=== PATIENT | female | born 1960 | race Caucasian/White ===

== ENCOUNTER → 2017-11-12 | Outpatient (CLI) | payer BC | LOC: GMAB 10:13 | PROVIDERS: ATTEND Family Medicine | DX: E05.90 Thyrotoxicosis, unspecified without thyrotoxic crisis or storm (principal) ==

== ENCOUNTER → 2018-01-14 | Outpatient (CLI) | payer BC ==
--- NOTE | 2018-01-14 16:22 | RAD ---
EXAM DESCRIPTION: Barium Swallow: Rad-Fluoroscopy. CLINICAL HISTORY: DYSPHAGIA COMPARISON: None TECHNIQUE: Preliminary AP reservations specialist radiograph. The patient swallowed barium pill with water. The patient swallowed gas-producing granules, water, and medium density barium under fluoroscopic visualization. The images were obtained with the patient standing and horizontal. Patient drank medium density barium through a straw in the semi-prone position. 130 fluoroscopic cine loop images. 11 static fluoroscopic images. Total fluoroscopy time was 3.4 minutes.. DAP: 26 Gy-cm2.. FINDINGS: The barium pill passed readily into the distal esophagus after drinking water but remained in the distal esophagus throughout most of the exam even with gas dilation of the esophagus and barium contrast passing through the esophagus into the stomach. No significant abnormalities in the oral pharyngeal phase of swallowing with no laryngeal penetration or aspiration significant premature spillage or significant movement of contrast into the esophagus. Surgical clips from prior thyroid surgery. Normal primary peristaltic wave was seen in the proximal two thirds of the stomach but the distal third showed tertiary and secondary contractions. After patient swallowed contrast in the prone position, contrast showed no significant movement distally in the prone or supine position. Small sliding hiatal hernia is noted with Schatzki ring. Contrast delayed passage through the gastroesophageal junction just above the hiatal hernia. The barium pill was lodged here until later in the examination No obvious mucosal lesions in the esophagus. No mass effect. Gastroesophageal reflux could not be elicited with maneuvers while patient prone or supine. Stomach was well distended with gas and contrast material. No gastroduodenal obstruction. IMPRESSION: 1. Possible smooth stricture in the distal esophagus at the gastroesophageal junction with small sliding hiatal hernia. No irregular mucosal lesion or mass effect. Distal esophagus shows decreased peristalsis with secondary and tertiary contractions. Decreased distal movement of contrast from the upper and mid esophagus when patient prone or supine. No significant gastroesophageal reflux could be elicited. Consider endoscopic evaluation of the gastroesophageal junction. 2. No gastroduodenal obstruction or slow transit.. Electronically signed by: Abdirizak Ahn MD 01/14/2018 4:21 PM CDT
== END ==
LOC: RAD 08:29
PROVIDERS: ATTEND Nurse Practitioner Family
DX: R13.10 Dysphagia, unspecified (principal); R13.0 Aphagia; K44.9 Diaphragmatic hernia without obstruction or gangrene

== ENCOUNTER 2018-09-07 15:14 | Inpatient (IN) | payer BC ==
--- NOTE | 2018-09-07 15:34 | ED.PDOC ---
History of Present Illness - General Chief Complaint: Respiratory Problem Time Seen by Provider: 09/07/18 15:28 Source: patient Exam Limitations: no limitations - History of Present Illness Initial Comments: Patient presents from Dr. Torres's clinic complaining of dyspnea and fever for three days. She has also had a cough productive of green sputum. Denies chest pain. Is s/p AMI with PTCA x 2 in 2007. No other complaints. Timing/Duration: other - 3 days Severity: moderate Improving Factors: nothing Worsening Factors: nothing Associated Symptoms: other - see HPI Allergies/Adverse Reactions: Allergies Procaine [From Novocain] Allergy (Verified 09/07/18 15:48) Other Causes her to pass out Review of Systems - Review of Systems Constitutional: States: fever EENTM: States: no symptoms reported Respiratory: States: see HPI Cardiology: States: no symptoms reported Gastrointestinal/Abdominal: States: no symptoms reported Genitourinary: States: no symptoms reported Musculoskeletal: States: no symptoms reported Skin: States: no symptoms reported Endocrine: States: no symptoms reported Hematologic/Lymphatic: States: no symptoms reported Family Medical History - Family History Mother Living Status: Hx Family Hypertension: Yes Hx Cardiac Disease: Yes - [place] Hx Family;Other: Father - CVA, [place], DM Physical Exam - Physical Exam General Appearance: Alert Eye Exam: bilateral normal Ears, Nose, Throat: normal ENT inspection Neck: non-tender, full range of motion, supple Respiratory: lungs clear, normal breath sounds Cardiovascular/Chest: normal peripheral pulses, regular rate, rhythm, no edema Gastrointestinal/Abdominal: normal bowel sounds, non tender, soft Back Exam: normal inspection, no CVA tenderness Extremity: normal range of motion, non-tender, normal inspection Neurologic: no motor/sensory deficits, alert, normal mood/affect, oriented x 3 Skin Exam: normal color Lymphatic: no adenopathy Progress - Progress Progress: 09/07/18 17:51 Laboratory Tests 09/07/18 09/07/18 09/07/18 16:09 16:09 16:09 WBC 4.6 L RBC 4.38 Hgb 12.9 Hct 38.8 MCV 88.6 MCH 29.5 MCHC 33.3 RDW 13.7 Plt Count 210 MPV 7.0 L Absolute Neuts (auto) 3.00 Absolute Lymphs (auto) 0.70 L Absolute Monos (auto) 0.90 H Absolute Eos (auto) 0.00 Absolute Basos (auto) 0.00 Neutrophils % 64.4 Lymphocytes % 14.7 L Monocytes % 20.1 H Eosinophils % 0.2 L Basophils % 0.6 PT INR PTT (SP) D-Dimer, Quantitative Sodium 127 L Potassium 2.7 L Chloride 91 L Carbon Dioxide 26 Anion Gap 12.7 BUN 20 H Creatinine 0.80 BUN/Creatinine Ratio 25.0 H Random Glucose 132 H Serum Osmolality 259.7 L Lactic Acid Calcium 8.7 Magnesium Total Bilirubin 0.7 AST 38 ALT 32 Alkaline Phosphatase 50 Creatine Kinase 360 H* CK-MB (CK-2) 5.1 H* CK-MB (CK-2) % 1.42 Troponin I < 0.02 B-Natriuretic Peptide Serum Total Protein 7.4 Albumin 3.9 Globulin 3.5 Albumin/Globulin Ratio 1.1 Urine Color Urine Appearance Urine pH Ur Specific Morrison Urine Protein Urine Glucose (UA) Urine Ketones Urine Blood Urine Nitrite Urine Bilirubin Urine Urobilinogen Ur Leukocyte Esterase Urine RBC Urine WBC Ur Epithelial Cells Urine Bacteria 09/07/18 09/07/18 09/07/18 16:09 16:09 16:09 WBC RBC Hgb Hct MCV MCH MCHC RDW Plt Count MPV Absolute Neuts (auto) Absolute Lymphs (auto) Absolute Monos (auto) Absolute Eos (auto) Absolute Basos (auto) Neutrophils % Lymphocytes % Monocytes % Eosinophils % Basophils % PT 9.9 INR 0.99 PTT (SP) 28.3 D-Dimer, Quantitative Sodium Potassium Chloride Carbon Dioxide Anion Gap BUN Creatinine BUN/Creatinine Ratio Random Glucose Serum Osmolality Lactic Acid 1.2 Calcium Magnesium 2.1 Total Bilirubin AST ALT Alkaline Phosphatase Creatine Kinase CK-MB (CK-2) CK-MB (CK-2) % Troponin I B-Natriuretic Peptide 37.7 Serum Total Protein Albumin Globulin Albumin/Globulin Ratio Urine Color Urine Appearance Urine pH Ur Specific Morrison Urine Protein Urine Glucose (UA) Urine Ketones Urine Blood Urine Nitrite Urine Bilirubin Urine Urobilinogen Ur Leukocyte Esterase Urine RBC Urine WBC Ur Epithelial Cells Urine Bacteria 09/07/18 09/07/18 16:09 16:32 WBC RBC Hgb Hct MCV MCH MCHC RDW Plt Count MPV Absolute Neuts (auto) Absolute Lymphs (auto) Absolute Monos (auto) Absolute Eos (auto) Absolute Basos (auto) Neutrophils % Lymphocytes % Monocytes % Eosinophils % Basophils % PT INR PTT (SP) D-Dimer, Quantitative 1.83 H* Sodium Potassium Chloride Carbon Dioxide Anion Gap BUN Creatinine BUN/Creatinine Ratio Random Glucose Serum Osmolality Lactic Acid Calcium Magnesium Total Bilirubin AST ALT Alkaline Phosphatase Creatine Kinase CK-MB (CK-2) CK-MB (CK-2) % Troponin I B-Natriuretic Peptide Serum Total Protein Albumin Globulin Albumin/Globulin Ratio Urine Color Yellow Urine Appearance Clear Urine pH 6.0 Ur Specific Morrison 1.015 Urine Protein Negative Urine Glucose (UA) 500 H Urine Ketones Negative Urine Blood Small H Urine Nitrite Negative Urine Bilirubin Negative Urine Urobilinogen 0.2 Ur Leukocyte Esterase Negative Urine RBC 0 Urine WBC 0-1 Ur Epithelial Cells 0 Urine Bacteria 0 CXR unremarkable. EKG showed no ST elevations nor depressions. No LBBB. D-d bharathi mildly elevated but venous access using an appropriate gauge needle was not possible with this patient so CTA chest was deferred and the need for bilateral LE US discussed with Pavan Ann. The patient's oxygen saturations were at 85% on RA and she was requiring at least 2L by [place] TKS > 92%. Influenza A test from Dr. Torres's office was positive. She was admitted for hypoxia. Departure - Departure Clinical Impression: Hypoxemia, Influenza Disposition: Admit Patient Condition: Fair Departure Forms: ED Discharge - Pt. Copy, Patient Portal Self Enrollment Diet: resume usual diet Activity: increase activity as tolerated Referrals: Irvin Berger MD [Primary Care Provider] - 1-2 Weeks
--- NOTE | 2018-09-07 15:42 | RAD ---
EXAM DESCRIPTION: Chest,1 View CLINICAL HISTORY: 58 years Female, dyspnea COMPARISON: Radiograph of the chest performed on the same day. TECHNIQUE: AP radiograph of the chest was obtained. FINDINGS: Trachea is midline.The cardiomediastinal silhouette is normal in size. The pulmonary vasculature is within normal limits.The lungs are clear with no acute consolidation.No evidence of pleural effusions. IMPRESSION: No acute cardiopulmonary process. Electronically signed by: Ann Kerns MD 09/07/2018 3:40 PM [facility]
[2018-09-07] MEDS ORDERED: IPRATROPIUM/ALBUTEROL 3 ML VIAL NEB ONE (16:55)
[2018-09-07] MEDS ORDERED: ACETAMINOPHEN 500 MG TAB PO ONE (17:56)
--- NOTE | 2018-09-07 18:16 | HP ---
SUPERVISING PHYSICIAN: Yoni Torres MD CHIEF COMPLAINT: Cough and increasing dyspnea. HISTORY OF PRESENT ILLNESS: Ms. Ocasio is a 58-year-old female patient that presented today to Dr. Torres's office complaining of some dyspnea and fever that started this past Friday. She had actually been seen in the walk-in clinic and was diagnosed with a viral upper respiratory infection and allergies. She progressively worsened over the weekend and started having a productive cough and increasing shortness of breath. In the clinic, she was found to be hypotensive and was sent to the Emergency Room for further evaluation. On presentation to the Emergency Room, her initial O2 saturation was 88% on room air. She had a temperature of 100.6 and was short of breath with respirations of 28. Blood pressure was stable at 130/83. Heart rate 92. Radiograph studies of the chest showed no acute cardiopulmonary process. Lab work showed she had an elevated D-dimer of 1.83, normal PT and PTT. White count was 4,600 without a current left shift. Chemistries showed mild hyponatremia at 127, hypokalemia with potassium 2.7, BUN 20, creatinine 0.8. Liver functions were all within normal limits. Troponin less than 0.02, BNP 37. Lactic acid 1.2. CT of the chest was ordered, however, was unable to be completed as she had no IV access compatible with administration of contrast. She was requiring oxygen to maintain O2 saturations above 92%, which she does not wear oxygen at home. She was then found to be positive for influenza A from the clinic. Given her current upper respiratory symptoms with influenza infection, some room air hypoxia not being O2 dependent, her hyponatremia and concerns for possible pulmonary embolism not completely ruled out until further testing, Dr. Cordero requested the patient be admitted for continuation of treatment. She was admitted in stable condition. PAST MEDICAL HISTORY: 1. Hypertension. 2. Coronary artery disease. 3. Hyperlipidemia. 4. Hypertension. 5. Type 2 diabetes mellitus. 6. Hypothyroidism on supplementation. 7. Gastroesophageal reflux disease. PAST SURGICAL HISTORY: 1. Tonsillectomy. 2. Tubal ligation. HOME MEDICATIONS: 1. Aspirin 81 mg at bedtime. 2. Atorvastatin 40 mg at bedtime. 3. Pantoprazole 40 mg daily. 4. Mobic 15 mg as needed. 5. Steglatro 15 mg daily. 6. Synthroid 75 mg daily. 7. Lisinopril/hydrochlorothiazide 20-25 mg 1 tablet. 8. Carvedilol 25 mg b.i.d. FAMILY HISTORY: Positive for heart disease. Mother at age 69 with nonalcoholic cirrhosis. Father at age 74 with myocardial infarction. She has one brother at age 49 with aneurysm around the heart. She has one sister who is also and was positive for type 2 diabetes mellitus. SOCIAL HISTORY: The patient is , currently retired. She lives in [place]. She had 3 children. She is a former smoker. She smoked for 25 years, but quit in 2007. She drinks alcohol on a very infrequent basis. She does not use illicit drugs. REVIEW OF SYSTEMS: CONSTITUTIONAL: Positive for fevers, chills, general malaise. HEENT: Positive for nasal congestion. Negative for sore throats, earaches, visual disturbances. RESPIRATORY: Positive for increasing shortness of breath, wheezing, productive cough. CARDIOVASCULAR: Negative for chest pain, palpitations or syncopal episodes. GASTROINTESTINAL: Negative for nausea, vomiting, diarrhea, constipation or abdominal pain. GENITOURINARY: Negative for dysuria, hematuria, polyuria. NEUROLOGIC: Negative for seizures, syncope, ataxia or other focal deficits. PHYSICAL EXAMINATION: VITAL SIGNS: Temperature on admission was 100.6. Pulse 92. Blood pressure 138/83. Respirations 28. Oxygen saturation 85% to 88% on room air. After breathing treatment, 92% on 2 liters nasal cannula. Admission weight 73.5 kg. GENERAL: The patient is in no apparent acute distress. She is somewhat anxious. She is pleasant and alert. HEENT: Tympanic membranes clear bilaterally. Oropharynx is pink, moist without any lesions. Nares show some clear nasal drainage. NECK: Supple, nontender with full range of motion. No jugular venous distention noted. RESPIRATORY: Lungs are diminished towards the bases without any obvious rhonchi, wheezes, or rales. CARDIOVASCULAR: Regular rate and rhythm without any appreciable murmurs, gallops, or rubs. ABDOMEN: Soft, nontender. Positive bowel sounds. EXTREMITIES: There is no cyanosis, clubbing or edema. NEUROLOGIC: The patient is alert and oriented times three. LABORATORY: White count 4,600 without a current left shift. Hemoglobin 12.9, hematocrit 30.8, platelet count 210,000. Coagulation studies showed elevated D- dimer at 1.83, PT 9.9, PTT 28.3. Chemistries showed sodium 127, potassium 2.7, CO2 26, BUN 20, creatinine 0.8, glucose 132, lactic acid 1.2, magnesium 2.1, calcium 8.7. Liver function within normal limits. Troponin less than 0.02. BNP 37. Urinalysis showed 500 glucose, small amount of blood, otherwise within normal limits. MICROBIOLOGY: Influenza A was positive in the clinic. RADIOLOGY: EKG showed no ST elevations and depression, no left bundle branch block. Chest x-ray in the Emergency Room per radiologic interpretation showed no acute cardiopulmonary process. ASSESSMENT: 1. Viral pneumonia with influenza A, room air hypoxia and the patient not O2 dependent with concerns for developing secondary bacterial pneumonia, community-acquired. 2. Electrolyte imbalance with hyponatremia and hypokalemia, acute onset, possibly related to some diuretic usage and underlying respiratory disease, requiring fluid management. 3. History of hypertension. 4. Coronary artery disease. 5. Type 2 diabetes mellitus. 6. Elevated D-dimer in a patient who is tachycardic, hypoxic and unable to fully rule out underlying pulmonary embolism awaiting CT of the chest, requiring initiation of Lovenox. PLAN: The patient is going to be admitted to the hospital for initiation of treatment of both antivirals with Tamiflu and coverage for the concern for developing bacterial pneumonia with azithromycin and Rocephin. She will be treated for questionable pulmonary embolism awaiting rule out with Lovenox 1 mg/kg q.12h. She will be on sliding scale per insulin protocol. We will obtain a second IV site and complete the CT of the chest to further rule out pulmonary embolism. We will start her on some IV fluids with normal saline and 40 of potassium to correct the underlying hyponatremia and hypokalemia. We will plan to repeat labs and chest x-ray in the morning. Anticipated length of stay at least 2 to 3 days. She will be on aggressive pulmonary hygiene with q.i.d. DuoNeb treatments as well as Pulmicort and given that she is short of breath with some hypoxia and some underlying chronic obstructive pulmonary disease in a previous smoker, we will give her a single dose of Solu-Medrol and monitor closely with anticipation of possibly starting her on oral prednisone in the morning. Until she can transition to outpatient management, we will continue to monitor and treat as needed. #[id number] MTDD
[2018-09-07] MEDS ORDERED: DEXTROSE 50% 25 GM/50 ML SYG IV PRN (19:56)
[2018-09-07] MEDS ORDERED: ONDANSETRON INJ 4 MG/2 ML VIAL IV PRN (19:56)
[2018-09-07] MEDS ORDERED: GLUCAGON INJ 1 MG VIAL SUBCU PRN (19:56)
[2018-09-07] MEDS ORDERED: SODIUM CHLORIDE 0.9% (FLUSH) 10 ML SYG IV PRN (19:56)
[2018-09-07] MEDS ORDERED: ACETAMINOPHEN 325 MG TAB PO PRN (19:56)
[2018-09-07] MEDS ORDERED: MAGNESIUM HYDROXIDE 30 ML UD PO PRN (19:56)
[2018-09-07] MEDS ORDERED: ALBUTEROL SULFATE 2.5 MG/3 ML VIAL NEB PRN (19:56)
[2018-09-07] MEDS ORDERED: POTASSIUM CHLORIDE 20 MEQ TAB PO ONE (20:00)
[2018-09-07] MEDS ORDERED: IV SET AND CAP CHANGE INJ INJ SCH (20:00)
[2018-09-07] MEDS ORDERED: ENOXAPARIN SODIUM 40 MG/0.4 ML SYG SUBCU ONE (20:10)
[2018-09-07] MEDS ORDERED: CARVEDILOL 12.5 MG TAB ONE (20:15)
[2018-09-07] MEDS ORDERED: ATORVASTATIN 20 MG TAB PO ONE (20:16)
[2018-09-07] MEDS ORDERED: SODIUM CHLORIDE 0.9% 250ML 250 ML ONE (20:16)
[2018-09-07] MEDS ORDERED: SODIUM CHL 0.9% 50ML MIN-BAG+ 50 ML IVPB ONE (20:16)
[2018-09-07] MEDS ORDERED: cefTRIAXone SODIUM 1 GM VIAL ONE (20:16)
[2018-09-07] MEDS ORDERED: AZITHROMYCIN IV 500 MG VIAL IVPB ONE (20:17)
[2018-09-07] MEDS ORDERED: methylPREDNISolone SODIUM SUC 125 MG/2 ML VIAL IV ONE (20:34)
[2018-09-07] MEDS: cefTRIAXone SODIUM 1 GM in SODIUM CHL 0.9% 50ML MIN-BAG+ 50 ML IVPB SCH (20:51)
[2018-09-07] MEDS: KCL 40MEQ/NS 1,000 ML IVS PRN (20:51)
[2018-09-07] MEDS: OSELTAMIVIR 75 MG CAP PO SCH (20:54)
[2018-09-07] MEDS: ASPIRIN (ENTERIC COATED) 81 MG TAB PO SCH (20:54)
[2018-09-07] MEDS: PROMETHAZINE W/CODEINE SYR 5 ML UD PO PRN (20:55)
[2018-09-07] MEDS ORDERED: NON-FORMULARY MEDICATION 1 EA MIS (Carvedilol [Carvedilol] 25 MG) PO SCH (21:00)
[2018-09-07] MEDS ORDERED: ENOXAPARIN SODIUM 40 MG/0.4 ML SYG SUBCU SCH (21:00)
[2018-09-07] MEDS ORDERED: NON-FORMULARY MEDICATION 1 EA MIS (Atorvastatin Calcium [Atorvastatin Calcium] 40 MG) PO SCH (21:00)
[2018-09-07] MEDS: IPRATROPIUM/ALBUTEROL 3 ML VIAL INH SCH (21:01)
[2018-09-07] MEDS: INSULIN LISPRO 100 UNITS/ML PEN SUBCU SCH (21:01)
[2018-09-07] MEDS: BUDESONIDE NEBS 0.5 MG/2 ML VIAL NEB SCH (21:01)
[2018-09-07] MEDS: AZITHROMYCIN IV 500 MG in SODIUM CHLORIDE 0.9% 250ML 250 ML IVPB SCH (21:39)
--- NOTE | 2018-09-07 23:08 | CT ---
CLINICAL HISTORY: dyspnea, elevated d-dimer COMPARISON: None. TECHNIQUE: CT CHEST ANGIOGRAPHY WITH IV CONTRAST on 09/07/2018 4:55 PM [employer]. MIPS reconstructions were generated. This exam was performed according to our departmental dose-optimization program, which includes automated exposure control, adjustment of the mA and/or kV according to patient size and/or use of iterative reconstruction technique. MIP images were generated. FINDINGS: Thoracic aorta is normal in course and caliber without aneurysm or dissection. Pulmonary arteries are somewhat suboptimally opacified with no large or central filling defects. The heart is borderline in size. There is no pericardial effusion. There are several borderline mediastinal lymph nodes. There is no pleural effusion, pleural thickening or pneumothorax. Central airways are patent. There is mild bibasilar scarring and atelectasis. There are no acute abnormalities within the limited images of the upper abdomen. There are no acute osseous findings. No suspicious bony lesions. IMPRESSION: No aortic dissection or aneurysm. No large or central pulmonary embolus. No pneumonia. Electronically signed by: James Lawson MD 09/07/2018 11:06 PM [employer]
[2018-09-07] MEDS: IBUPROFEN 400 MG TAB PO PRN (23:57)
[2018-09-08] MEDS ORDERED: SODIUM CHLORIDE 0.9% 500ML 500 ML IVS ONE (02:34)
[2018-09-08] MEDS ORDERED: LEVOTHYROXINE SODIUM 0.075 MG TAB ONE ×2 (05:11→19:07)
[2018-09-08] MEDS: IBUPROFEN 400 MG TAB PO PRN ×2 (05:42→20:33)
[2018-09-08] MEDS: PROMETHAZINE W/CODEINE SYR 5 ML UD PO PRN ×4 (05:43→20:33)
[2018-09-08] MEDS: PANTOPRAZOLE SODIUM IV 40 MG VIAL IV SCH (06:15)
[2018-09-08] MEDS ORDERED: BUDESONIDE NEBS 0.25 MG/2 ML INH ONE (06:58)
--- NOTE | 2018-09-08 07:22 | RAD ---
EXAM DESCRIPTION: Chest,2 Views CLINICAL HISTORY: Pneumonia COMPARISON: CT of the thorax September 07, 2018. FINDINGS: Frontal and lateral views of the thorax. No consolidation, effusion or pneumothorax is demonstrated. Vascular pedicle is normal. No cephalization is present. Mild bronchial cuffing is present. Heart size is normal. No displaced rib fracture or rib lesion. Hydroxyapatite deposition of the left shoulder. IMPRESSION: Mild bronchitis. No focal consolidation. No significant interval change. Electronically signed by: Nick Link MD 09/08/2018 7:20 AM [facility]
[2018-09-08] MEDS: BUDESONIDE NEBS 0.5 MG/2 ML VIAL NEB SCH ×2 (08:03→20:57)
[2018-09-08] MEDS: IPRATROPIUM/ALBUTEROL 3 ML VIAL INH SCH ×4 (08:04→20:57)
[2018-09-08] MEDS: INSULIN LISPRO 100 UNITS/ML PEN SUBCU SCH ×4 (08:08→20:53)
[2018-09-08] MEDS: OSELTAMIVIR 75 MG CAP PO SCH ×2 (08:12→20:31)
[2018-09-08] MEDS ORDERED: ENOXAPARIN SODIUM 80 MG/0.8 ML SYG SUBCU SCH (09:00)
[2018-09-08] MEDS ORDERED: LEVOTHYROXINE SODIUM 0.075 MG TAB PO SCH (09:00)
[2018-09-08] MEDS: hydroCHLOROthiazide 12.5 MG CAP PO SCH (09:38)
[2018-09-08] MEDS: CARVEDILOL 12.5 MG TAB PO SCH ×2 (09:38→20:41)
[2018-09-08] MEDS: predniSONE 20 MG TAB PO SCH (09:38)
[2018-09-08] MEDS: LISINOPRIL 10 MG TAB PO SCH (09:38)
[2018-09-08] MEDS: ERTUGLIFLOZIN PO SCH (09:47)
[2018-09-08] MEDS: PYROGLUTAMIC A PO SCH (09:47)
[2018-09-08] MEDS ORDERED: SODIUM CHLORIDE 0.9% (FLUSH) 10 ML SYG IV ONE (09:51)
[2018-09-08] MEDS: KCL 40MEQ/NS 1,000 ML IVS PRN ×2 (09:58→18:08)
--- NOTE | 2018-09-08 13:16 | PN ---
SUPERVISING PHYSICIAN: Yoni Torres MD DATE: 09/08/18 SUBJECTIVE: The patient continued to be quite short of breath and dyspneic through the night. In fact, this morning, she was actually requiring Ventimask at 50%. Since then, she has actually been able to wean back to nasal cannula at 4 liters. She notes she feels like her shortness of breath is sort of improved, but she still gets very dyspneic with any exertional effort. She has been afebrile. She has had no nausea, vomiting or chest pain. OBJECTIVE: VITAL SIGNS: Temperature 98.3. Pulse 69. Blood pressure 87/50. Oxygen saturation 92% on Ventimask on 40%. After additional breathing treatments, 92% on nasal cannula at 4 liters with blood pressure 103/64, heart rate 75. I&Os show negative balance of 850 with 1600, 2450 out. Weight 74.0 kg. GENERAL: The patient appears to be in no acute distress. She is comfortable resting. She is alert. CHEST: Lung sounds today are improving with aeration, but diminished towards the bases, still no obvious wheezing. HEART: Regular rate and rhythm. ABDOMEN: Soft, nontender. Positive bowel sounds. EXTREMITIES: No edema. NEUROLOGIC: Alert and oriented times three. LABORATORY: White count stable at 4,500, hemoglobin 12.8, hematocrit 30.1, platelet count 280,000. Differential with a left shift today. Chemistries show normal electrolytes with potassium 4, sodium 138, BUN 18, creatinine 0.5. Blood sugars between 107 and 168. Calcium 8.1. MICROBIOLOGY: Sputum culture still pending. RADIOLOGY: CT of the chest last night was finally completed once able to establish a good venous site which showed per radiologic interpretation no acute dissection or aortic aneurysms, no large or central pulmonary embolus and no obvious pneumonia. She did have a chest x-ray this morning and per radiologic interpretation showed mild bronchitis, no focal consolidations, no significant interval change. ASSESSMENT: 1. Viral pneumonitis secondary to influenza A with persistent hypoxia, requiring high-flow O2 with concerns for developing secondary bacterial pneumonia, community-acquired. 2. Electrolyte imbalance with hyponatremia and hypokalemia, treated with fluids and back to baseline levels. 3. History of hypertension, stable. 4. Coronary artery disease. 5. Type 2 diabetes mellitus, stable. 6. Elevated D-dimer with no evidence of pulmonary embolus on CT scan of the chest, felt to more likely due to the ongoing viral pneumonitis. PLAN: We will continue with current plan of treatment at this point with Tamiflu to cover for her influenza A as well as cover with some antibiotics with azithromycin and Rocephin for concern for developing secondary bacterial pneumonia. She was given a dose of Solu-Medrol last night and we will start her on p.o. this morning. We will continue to monitor her respiratory effort and should she continue to be significantly dyspneic, certainly we will need to increase dosing with additional 20 to 40 of prednisone this afternoon. If she does continue to show slow improvement, certainly we will need to consider possibly scheduling several doses of Solu-Medrol. At this point, we will continue with the oral prednisone. I saline locked her as her electrolytes are now balanced and she is euvolemic. We will continue with DuoNeb treatments and Pulmicort and aggressive pulmonary hygiene. We will continue to monitor and treat as needed until she can transition to outpatient management. #[id number] [facility]
[2018-09-08] MEDS ORDERED: SODIUM CHLORIDE 0.9% 250ML 250 ML ONE (19:06)
[2018-09-08] MEDS ORDERED: cefTRIAXone SODIUM 1 GM VIAL ONE (19:07)
[2018-09-08] MEDS ORDERED: SODIUM CHL 0.9% 50ML MIN-BAG+ 50 ML IVPB ONE (19:07)
[2018-09-08] MEDS ORDERED: AZITHROMYCIN IV 500 MG VIAL IVPB ONE (19:08)
[2018-09-08] MEDS: cefTRIAXone SODIUM 1 GM in SODIUM CHL 0.9% 50ML MIN-BAG+ 50 ML IVPB SCH (19:25)
[2018-09-08] MEDS: AZITHROMYCIN IV 500 MG in SODIUM CHLORIDE 0.9% 250ML 250 ML IVPB SCH (20:30)
[2018-09-08] MEDS: ATORVASTATIN 20 MG TAB PO SCH (20:31)
[2018-09-08] MEDS: ASPIRIN (ENTERIC COATED) 81 MG TAB PO SCH (20:31)
[2018-09-09] MEDS: KCL 40MEQ/NS 1,000 ML IVS PRN (05:04)
[2018-09-09] MEDS: LEVOTHYROXINE SODIUM 0.075 MG TAB PO SCH (05:04)
[2018-09-09] MEDS: PROMETHAZINE W/CODEINE SYR 5 ML UD PO PRN ×2 (05:40→12:39)
[2018-09-09] MEDS: PANTOPRAZOLE SODIUM IV 40 MG VIAL IV SCH (06:07)
[2018-09-09] MEDS: INSULIN LISPRO 100 UNITS/ML PEN SUBCU SCH ×4 (07:37→20:48)
[2018-09-09] MEDS: BUDESONIDE NEBS 0.5 MG/2 ML VIAL NEB SCH ×2 (08:51→20:36)
[2018-09-09] MEDS: IPRATROPIUM/ALBUTEROL 3 ML VIAL INH SCH ×4 (08:51→20:36)
[2018-09-09] MEDS: PYROGLUTAMIC A PO SCH (09:00)
[2018-09-09] MEDS: ERTUGLIFLOZIN PO SCH (09:00)
[2018-09-09] MEDS: OSELTAMIVIR 75 MG CAP PO SCH ×2 (09:03→20:09)
[2018-09-09] MEDS: predniSONE 20 MG TAB PO SCH (09:03)
[2018-09-09] MEDS: CARVEDILOL 12.5 MG TAB PO SCH ×2 (09:03→20:09)
[2018-09-09] MEDS: hydroCHLOROthiazide 12.5 MG CAP PO SCH (09:03)
[2018-09-09] MEDS: LISINOPRIL 10 MG TAB PO SCH (09:03)
[2018-09-09] MEDS: ENOXAPARIN SODIUM 40 MG/0.4 ML SYG SUBCU SCH (12:35)
[2018-09-09] MEDS ORDERED: methylPREDNISolone SODIUM SUC 125 MG/2 ML VIAL IV ONE (12:38)
[2018-09-09] MEDS ORDERED: ALPRAZolam 0.25 MG TAB PO PRN (12:40)
[2018-09-09] MEDS ORDERED: SODIUM CHLORIDE 0.9% (FLUSH) 10 ML SYG IV ONE (12:57)
[2018-09-09] MEDS: IBUPROFEN 400 MG TAB PO PRN (17:13)
[2018-09-09] MEDS ORDERED: methylPREDNISolone SODIUM SUC 125 MG/2 ML VIAL IV SCH (18:00)
[2018-09-09] MEDS: AZITHROMYCIN 250 MG TAB PO SCH (19:10)
[2018-09-09] MEDS: ATORVASTATIN 20 MG TAB PO SCH (20:07)
[2018-09-09] MEDS: ASPIRIN (ENTERIC COATED) 81 MG TAB PO SCH (20:09)
[2018-09-09] MEDS: CHLORPHENIRAMINE W/HYDROCODONE 5 ML UD PO PRN (20:37)
[2018-09-09] MEDS ORDERED: TEMAZEPAM 15 MG CAP PO PRN (20:47)
--- NOTE | 2018-09-09 21:18 | PN ---
DATE: 09/09/18 SUPERVISING PHYSICIAN: Fortino Torres M.D. SUBJECTIVE: The patient once again this morning required a fairly good amount of O2 in the form of a Venti mask. She notes that she still feels starved for air at times like she cannot get a full breath, although she is not actually having any wheezing. She has been afebrile. She has had no chest pains. OBJECTIVE: VITAL SIGNS: temperature 98, pulse 60, blood pressure 131/78, respirations 20, satting 89% on a Venti mask. After multiple breathing treatments it was back up to 97 on nasal cannula at 3 liters. I's and O's show a negative balance of 400 with 2300 in, 2700 out. Weight is 74.7 kg. GENERAL: The patient is sitting in a chair eating lunch. She shows to be in no acute distress. CHEST: Lung sounds continue to be diminished towards the bases but no wheezing, with just very slight improvement from yesterday. HEART: Regular rate and rhythm. ABDOMEN: Soft, non-tender. Positive bowel sounds. EXTREMITIES: No edema. NEUROLOGIC: She is alert and oriented times three. LABORATORY: Laboratories have been stable and blood sugars are showing to be stable between 107 and 177. RADIOLOGY: No repeat chest x-ray today. Will repeat one in the morning. ASSESSMENT: 1. Viral pneumonitis secondary to influenza A with persistent hypoxia, requiring continued high-flow oxygen at times with remote concerns of secondary bacterial pneumonia requiring further aggressive management and corticosteroids. 2. Electrolyte imbalance with hyponatremia and hypokalemia on admission treated with fluids and back to baseline levels. 3. History of hypertension showing to be stable. 4. Coronary artery disease. 5. Type 2 diabetes mellitus, stable. 6. Elevated D-dimer with no evidence of pulmonary embolus on CTA of the chest felt to be due to continued viral pneumonitis. PLAN: Given that she has not made progress as she should have in the last 24 hours, will go ahead and bump her steroids up to give her a dose of 125 mg of Solu-Medrol and will follow this up with scheduled dosing of 60 every 6 hours for 3 doses, and will start her on p.o. prednisone in the morning and reevaluate. Hopefully this will improve her tidal volumes and she will not feel so starved for air, and will require less supplemental oxygen. Will continue antibiotics as scheduled. She does have a significant cough and notes that the Phenergan, Promethazine and codeine do not seem to be working as well, but given that she is allergic to local anesthetics, will have to try a different version. Will try Tussionex. I did discuss with her that as soon as she can get off the oxygen and is not requiring supplementation, we could send her home on continued steroids and antibiotic coverage. Until she can do so, will continue to monitor and treat as needed. Will also have her on Pulmicort for inhaled steroid coverage as well. Will continue to monitor and treat as needed until she transitions to outpatient management. #[id number] MTDD
[2018-09-09] MEDS ORDERED: methylPREDNISolone SODIUM SUC 125 MG/2 ML VIAL IM ONE (23:55)
[2018-09-10] MEDS: LEVOTHYROXINE SODIUM 0.075 MG TAB PO SCH (05:06)
[2018-09-10] MEDS: PANTOPRAZOLE SODIUM TAB 40 MG PO SCH (06:13)
[2018-09-10] MEDS: IBUPROFEN 400 MG TAB PO PRN ×2 (06:22→12:37)
[2018-09-10] MEDS: INSULIN LISPRO 100 UNITS/ML PEN SUBCU SCH ×4 (07:29→21:00)
[2018-09-10] MEDS: IPRATROPIUM/ALBUTEROL 3 ML VIAL INH SCH ×4 (08:00→19:56)
[2018-09-10] MEDS: BUDESONIDE NEBS 0.5 MG/2 ML VIAL NEB SCH ×2 (08:00→19:56)
--- NOTE | 2018-09-10 10:19 | PN ---
SUPERVISING PHYSICIAN: Yoni Torres MD DATE: 09/10/18 SUBJECTIVE: The patient is lying in bed. She complains of some shortness of breath and she is afraid she will need oxygen at home. We discussed her staying overnight and to try to stay on room air and that we will have do respiratory do an exertional oxygen study. Otherwise, she has no complaints of chest pain, nausea, vomiting, diarrhea or constipation. OBJECTIVE: VITAL SIGNS: Temperature 98.6. Heart rate 65. Blood pressure 174/84. Respiratory rate 22-26. O2 saturation 94% on room air. She did drop to 89% overnight on room air and required some oxygen, but has been on room air for several hours. RESPIRATORY: Diminished at the bases, with scattered rhonchi. Expiratory wheezing throughout. Patient is tachypneic. CARDIAC: Regular rate and rhythm. GASTROINTESTINAL: Abdomen is soft, nondistended, nontender. Bowel sounds are positive. NEUROLOGIC: Awake, alert and oriented times three. LABORATORY: Blood sugars have run between 127 and 220. All other labs and films have been reviewed via the EMR. ASSESSMENT: 1. Viral pneumonitis secondary to influenza A with persistent hypoxia, requiring continued high-flow oxygen at times with remote concerns of secondary bacterial pneumonia requiring further aggressive management and corticosteroids. 2. Electrolyte imbalance with hyponatremia and hypokalemia on admission treated with fluids and back to baseline levels. 3. History of hypertension showing to be stable. 4. Coronary artery disease. 5. Type 2 diabetes mellitus, stable. 6. Elevated D-dimer with no evidence of pulmonary embolus on CTA of the chest felt to be due to continued viral pneumonitis. PLAN: We will continue present supportive care. She will remain on room air overnight. I am going to do an exertional ambulation study today to check her oxygen requirements. Hopefully with getting up and moving around, she will not require any home oxygen. I believe her drop in oxygen saturation is mostly due to sleep apnea. I have scheduled a sleep study for September 14 at 20:30. We will plan on discharge for tomorrow. I did order a chest x-ray for in the morning. I will hold on any labs as they have been fairly stable. Her IV came out during the night and I switched her over to p.o. medications. At this time, we will not restart IV since we plan to discharge her tomorrow. We will continue to monitor the patient closely and follow as needed. #[id number] MTDD
[2018-09-10] MEDS: CARVEDILOL 12.5 MG TAB PO SCH ×2 (10:23→21:02)
[2018-09-10] MEDS: hydroCHLOROthiazide 12.5 MG CAP PO SCH (10:23)
[2018-09-10] MEDS: OSELTAMIVIR 75 MG CAP PO SCH ×2 (10:24→21:02)
[2018-09-10] MEDS: PYROGLUTAMIC A PO SCH (10:24)
[2018-09-10] MEDS: predniSONE 20 MG TAB PO SCH (10:24)
[2018-09-10] MEDS: ENOXAPARIN SODIUM 40 MG/0.4 ML SYG SUBCU SCH (10:24)
[2018-09-10] MEDS: LISINOPRIL 10 MG TAB PO SCH (10:24)
[2018-09-10] MEDS: ERTUGLIFLOZIN PO SCH (10:24)
[2018-09-10] MEDS ORDERED: methylPREDNISolone SODIUM SUC 125 MG/2 ML VIAL IV ONE (14:44)
[2018-09-10] MEDS: guaiFENesin ER TAB 600 MG TAB PO SCH ×2 (15:46→21:01)
[2018-09-10] MEDS: AZITHROMYCIN 250 MG TAB PO SCH (17:51)
[2018-09-10] MEDS: CHLORPHENIRAMINE W/HYDROCODONE 5 ML UD PO PRN (18:46)
[2018-09-10] MEDS: ATORVASTATIN 20 MG TAB PO SCH (21:01)
[2018-09-10] MEDS: ASPIRIN (ENTERIC COATED) 81 MG TAB PO SCH (21:01)
[2018-09-10] MEDS: methylPREDNISolone SODIUM SUC 125 MG/2 ML VIAL IM SCH (21:03)
[2018-09-10] MEDS ORDERED: methylPREDNISolone SODIUM SUC 125 MG/2 ML VIAL IV SCH (22:00)
[2018-09-11] MEDS: LEVOTHYROXINE SODIUM 0.075 MG TAB PO SCH (05:13)
[2018-09-11] MEDS: methylPREDNISolone SODIUM SUC 125 MG/2 ML VIAL IM SCH (05:16)
[2018-09-11] MEDS: PANTOPRAZOLE SODIUM TAB 40 MG PO SCH (06:16)
--- NOTE | 2018-09-11 07:13 | RAD ---
EXAM DESCRIPTION: Chest,2 Views CLINICAL HISTORY: 58 years Female sob COMPARISON: None TECHNIQUE: PA and lateral views of the chest are obtained. FINDINGS: Heart: The heart is normal in size and configuration. Vasculature: The aorta is unremarkable with the exception of mild tortuosity and atherosclerosis. The pulmonary vascularity is normal. Mediastinum: Unremarkable otherwise. No evidence of mass or adenopathy. Lungs: There is mild peribronchial thickening. There is no focal consolidation in the lungs. Nodular densities projecting in the lung bases in the expected location of the nipples again noted. Pleural spaces: There are no pleural effusions. There are no pneumothoraces. Osseous structures: There is no evidence of acute fracture, osseous destruction or osteoblastic lesions. Minimal degenerative changes noted in the spine. Tubes and catheters: None. Upper abdomen: No acute findings. Chest wall: Unremarkable. IMPRESSION: Mild peribronchial thickening suggesting a viral lower respiratory tract illness and/or reactive airway disease without acute consolidative pneumonia. Remainder of findings as described above. Electronically signed by: Jessica Beckham MD 09/11/2018 7:11 AM [facility]
[2018-09-11] MEDS: INSULIN LISPRO 100 UNITS/ML PEN SUBCU SCH ×2 (07:36→11:44)
[2018-09-11] MEDS: PYROGLUTAMIC A PO SCH (07:38)
[2018-09-11] MEDS: ERTUGLIFLOZIN PO SCH (07:38)
[2018-09-11] MEDS: IBUPROFEN 400 MG TAB PO PRN (08:13)
[2018-09-11] MEDS: predniSONE 20 MG TAB PO SCH (08:22)
[2018-09-11] MEDS: CARVEDILOL 12.5 MG TAB PO SCH (08:22)
[2018-09-11] MEDS: OSELTAMIVIR 75 MG CAP PO SCH (08:23)
[2018-09-11] MEDS: LISINOPRIL 10 MG TAB PO SCH (08:23)
[2018-09-11] MEDS: hydroCHLOROthiazide 12.5 MG CAP PO SCH (08:23)
[2018-09-11] MEDS: CHLORPHENIRAMINE W/HYDROCODONE 5 ML UD PO PRN (08:24)
[2018-09-11] MEDS: BUDESONIDE NEBS 0.5 MG/2 ML VIAL NEB SCH (08:25)
[2018-09-11] MEDS: IPRATROPIUM/ALBUTEROL 3 ML VIAL INH SCH ×2 (08:25→13:08)
[2018-09-11] MEDS: guaiFENesin ER TAB 600 MG TAB PO SCH (09:06)
[2018-09-11] MEDS: ENOXAPARIN SODIUM 40 MG/0.4 ML SYG SUBCU SCH (09:06)
[2018-09-11 14:11] VITALS: BP 165/80; TEMP 98.1; O2SAT 92
[2018-09-11] MEDS: AZITHROMYCIN 250 MG TAB PO SCH (14:23)
--- NOTE | 2018-09-12 19:13 | DS ---
SUPERVISING PHYSICIAN: Fortino Torres M.D. DISCHARGE DIAGNOSIS: 1. Viral pneumonitis secondary to influenza A with persistent hypoxia, requiring continued high-flow oxygen at times with remote concerns of secondary bacterial pneumonia requiring further aggressive management and corticosteroids. 2. Electrolyte imbalance with hyponatremia and hypokalemia on admission treated with fluids and back to baseline levels. 3. History of hypertension showing to be stable. 4. Coronary artery disease. 5. Type 2 diabetes mellitus, stable. 6. Elevated D-dimer with no evidence of pulmonary embolus on CTA of the chest felt to be due to continued viral pneumonitis. HISTORY OF PRESENT ILLNESS: This is a 58-year-old female patient who was seeing Dr. Torres, her primary care physician, on the date of admission complaining of dyspnea and fever that started the previous Friday. She had actually been seen in the walk-in clinic and was diagnosed with a viral upper respiratory infection and allergies. She progressively worsened over the weekend and started having a productive cough with increasing shortness of breath. In the clinic, she was found to be hypotensive and was sent to the Emergency Room for further evaluation. On presentation to the Emergency Room, her initial sats were 88% on room air. She had a temperature of 100.6 and was short of breath with respiratory rate of 28. Blood pressure was stable at 130/83. Heart rate 92. Radiograph studies of the chest showed no acute cardiopulmonary process. Lab work showed an elevated D-dimer of 1.83, normal PT and PTT. White count was 4,600 without a current left shift. Chemistries showed mild hyponatremia at 127, hypokalemia with potassium 2.7, BUN 20, creatinine 0.8. Liver function tests were within normal limits. Troponin less than 0.02, BNP 37. Lactic acid 1.2. CT of the chest was ordered, although they were unable to be completed as she had no IV access compatible with administration of contrast. She was requiring oxygen to maintain her saturations above 92%, and she does not wear home oxygen. Her lab found her to be positive for influenza A. Due to her current upper respiratory symptoms with influenza infection as well as hypoxia requiring oxygen to maintain saturations, and electrolyte imbalance, she was admitted to the hospital in stable condition. HOSPITAL COURSE: She was started on Tamiflu and given azithromycin and Rocephin for concerns for developing bacterial pneumonia. She was treated with Lovenox at 1 mg per kg over 12 hours for a questionable pulmonary embolism. She also was placed on sliding scale insulin protocol. She was also given potassium supplementation as well as some normal saline. Labs and chest x-ray were repeated. She is on aggressive pulmonary hygiene, including DuoNeb treatments. She received some IV Solu-Medrol. She continued to be short of breath over the next 24 hours and at one point required a Venti mask at 50%. She was actually weaned back to nasal cannula but continued to be dyspneic with any exertional effort. CTA of the chest showed no acute dissection or aortic aneurysm with no pulmonary emboli. Her antibiotics and Tamiflu were continued. She was transitioned off of IV Solu-Medrol to p.o. prednisone. She progressively improved to room air. She was walking in the hallways without any significant desaturations. It was felt that she may have some apnea at night which were causing her saturations to drop during the night, so she was scheduled for a sleep study on 09/14/18 at 8:30 in the evening. She will be discharged home today in stable condition. LABORATORY: WBCs remained stable at 4.5 with hemoglobin of 12.8 and 38.1. Blood sugars ran between 107 and 220. Electrolytes have been basically within normal limits. RADIOLOGY: Chest and thoracic CTA are as per Hospital Course. Final chest x- ray showed mild peribronchial thickening suggestive of a viral lower respiratory tract illness and/or reactive airway disease without acute consolidative pneumonia. DISCHARGE PLAN: The patient will be discharged home in stable condition. She is to resume her previous medications as well as her previous activity. She is to complete her sleep study on 09/14/18 at 8:30 PM. She has a followup appointment with Dr. Torres on 09/16/18 at 9:45 AM. In addition to her home medications, she is to continue with Align, Cefdinir, Guaifenesin, Prednisone taper and Promethazine with codeine cough medicine. She is to return to the hospital or followup with Dr. Torres for any problems or complications. DISCHARGE MEDICATIONS: 1. Pantoprazole. 2. Mobic. 3. Steglatro. 4. Levothyroxine. 5. Atorvastatin. 6. Lisinopril Hydrochlorothiazide. 7. Carvedilol. 8. Aspirin. 9. Align. 10. Cefdinir. 11. Guaifenesin. 12. Prednisone taper. 13. Promethazine with codeine cough medicine. #[id number] [facility]
== END 2018-09-11 14:00 | disposition home or self-care (01) | DRG 194 ==
LOC: ER 15:14 → MS 18:11
PROVIDERS: ADMIT Family Medicine; ATTEND Nurse Practitioner Acute Care
PROC: B32T1ZZ Computerized Tomography (CT Scan) of Left Pulmonary Artery using Low Osmolar Contrast (ICD-10-PCS; principal; 2018-09-07)
PROC: B32S1ZZ Computerized Tomography (CT Scan) of Right Pulmonary Artery using Low Osmolar Contrast (ICD-10-PCS; 2018-09-07)
DX: J10.00 Influenza due to other identified influenza virus with unspecified type of pneumonia (principal); E87.1 Hypo-osmolality and hyponatremia; R09.02 Hypoxemia; E87.6 Hypokalemia; I10 Essential (primary) hypertension; I25.10 Atherosclerotic heart disease of native coronary artery without angina pectoris; E11.9 Type 2 diabetes mellitus without complications; R79.89 Other specified abnormal findings of blood chemistry; G47.30 Sleep apnea, unspecified; J15.9 Unspecified bacterial pneumonia; E78.5 Hyperlipidemia, unspecified; E03.9 Hypothyroidism, unspecified; K21.9 Gastro-esophageal reflux disease without esophagitis; I25.2 Old myocardial infarction; Z79.82 Long term (current) use of aspirin; Z79.1 Long term (current) use of non-steroidal anti-inflammatories (NSAID); Z79.899 Other long term (current) drug therapy; Z87.891 Personal history of nicotine dependence; Z95.5 Presence of coronary angioplasty implant and graft; Z88.4 Allergy status to anesthetic agent

== ENCOUNTER 2018-09-14 14:52 | Inpatient (IN) | payer BC ==
[2018-09-14] MEDS ORDERED: IPRATROPIUM/ALBUTEROL 3 ML VIAL NEB ONE (15:10)
[2018-09-14] MEDS ORDERED: methylPREDNISolone SODIUM SUC 125 MG/2 ML VIAL IV ONE (15:11)
--- NOTE | 2018-09-14 15:23 | ED.PDOC ---
History of Present Illness - General Chief Complaint: Respiratory Problem Time Seen by Provider: 09/14/18 14:53 Source: patient Exam Limitations: no limitations - History of Present Illness Initial Comments: THIS PATIENT WAS RELEASED FROM THE HOSPITAL IN THE VERY RECENT PAST(FRIDAY EVENING). SHE HAD SPEND SEVERAL DAYS WITH SOB, FEVER HAD A POSITIVE INFLUENCE A SCREEN AND WAS ESSENTIALLY TREATED A VIRAL PNEUMONITIS, WITH BREATHING TREATMENT. DURING HER STAY IT WAS NOTED THAT AT NIGHT HER OXYGEN SATURATIONS DROPPED SIGNIFICANTLY AND HE WAS SCHEDULED TODAY FOR A SLEEP STUDY. SHE PRESENTED TO DR. WOMACK'S OFFICE AND HE NOTED THAT SHE LOOKS FATIGUED, SHORT OF BREATH, UNABLE TO MAKE FULL SENTENCES BEFORE SHE BECOMES EXHAUSTED. HE REPEATED A CXR WHICH WAS NORMAL AND ALSO PERFORMED A CBC AND A CMP. THE GLUCOSE WAS 231 AND THE WBC WAS 14,000 WITH 79% NEUTROPHILS. SHE IS BEING SENT HERE FOR FURTHER EVALUATION. DURING THIS LAST HOSPITALIZATION A D-DIMER WAS ELEVATED AND A CT ANGIO OF THE CHEST WAS PERFORMED. NO INFILTRATE AND NO PE WAS NOTED. Timing/Duration: 1 week Severity: moderate Activities at Onset: rest Possible Cause: other - SINCE SHE WAS ADMITTED ON 09-07 Improving Factors: nothing Worsening Factors: movement, other - TALKING Associated Symptoms: fever Respiratory Risk Factors: no cause identified, other - NON SMOKER Allergies/Adverse Reactions: Allergies Procaine [From Novocain] Allergy (Verified 09/07/18 18:30) Other Causes her to pass out Home Medications: Ambulatory Orders Aspirin [Jennie Low Dose] 81 mg PO BEDTIME 09/07/18 Atorvastatin Calcium 40 mg PO BEDTIME 09/07/18 Carvedilol 25 mg PO BID 09/07/18 Ertugliflozin l-Pyroglutamic A [Steglatro] 15 mg PO DAILY 09/07/18 Levothyroxine Sodium [Synthroid] 75 mcg PO DAILY 09/07/18 Lisinopril & Hydrochlorothiazi [Lisinopril/Hctz 20-25 mg] 1 tab PO DAILY 09/07/18 Meloxicam [Mobic] 15 mg PO DAILY PRN 09/07/18 Pantoprazole Sodium 40 mg PO DAILY 09/07/18 Bifidobacterium Infantis [Align] 4 mg PO BID #28 capsule 09/11/18 Cefdinir 300 mg PO BID #14 capsule 09/11/18 Prednisone See Taper PO DAILY #30 tab 09/11/18 Promethazine W/Codeine [Promethazine/Codeine 6.25-10 mg/5Ml] 1 tsp PO Q6H PRN #6 oz 09/11/18 guaiFENesin ER TAB [Mucinex Tab] 1,200 mg PO BID #60 tab 09/11/18 Review of Systems - Review of Systems Constitutional: States: fever, malaise, weakness EENTM: States: no symptoms reported Respiratory: States: cough, orthopnea, short of breath, wheezing Cardiology: States: no symptoms reported Gastrointestinal/Abdominal: States: no symptoms reported Genitourinary: States: no symptoms reported Musculoskeletal: States: no symptoms reported Skin: States: no symptoms reported Neurological: States: no symptoms reported Endocrine: States: no symptoms reported Hematologic/Lymphatic: States: no symptoms reported Past Medical History (General) - Patient Medical History Hx Seizures: No Hx Stroke: No Hx Asthma: No Hx of COPD: No Hx Cardiac Disorders: Yes - [place] w/stents in 2007 Hx Congestive Heart Failure: No Hx Pacemaker: No Hx Hypertension: Yes Hx Thyroid Disease: Yes - Thyroidectomy Hx Diabetes: No Hx Gastroesophageal Reflux: Yes Hx MRSA: No - Vaccination History Hx Influenza Vaccination: Yes - 2017 Hx Pneumococcal Vaccination: Yes - Social History Hx Tobacco Use: Yes - Quit 2007 Hx Alcohol Use: No Hx Substance Use: No Hx Physical Abuse: No Hx Emotional Abuse: No Family Medical History - Family History Mother Living Status: Hx Family Hypertension: Yes Hx Cardiac Disease: Yes - [place] Hx Family;Other: Father - CVA, [place], DM Physical Exam - Physical Exam General Appearance: Alert, Obvious distress, Ill Appearing, Well Developed, Well Groomed, Well Hydrated, Well Nourished Eyes, Ears, Nose, Throat Exam: PERRL/EOMI, pharynx normal Neck: non-tender, supple Respiratory: chest non-tender, decreased breath sounds, wheezing, other - DIFFUSE EXPIRATORY WHEEZING NOTED Cardiovascular/Chest: normal peripheral pulses, regular rate, rhythm Peripheral Pulses: radial,right: 2+, radial,left: 2+ Gastrointestinal/Abdominal: normal bowel sounds, no organomegaly, no pulsatile mass Extremity: normal range of motion, no pedal edema, no calf tenderness Neurologic: no motor/sensory deficits, oriented x 3 Skin Exam: normal color Lymphatic: no adenopathy Progress - Progress Progress: 09/14/18 18:15 EKG; HR OF 70, SD INTERVAL OF 126, QRS OF 86, QTC OF 473, AXES OF 57. IMPRESSION: SINUS RHYTHM, NO INJURY PATTERN. 09/14/18 18:28 I HAVE DISCUSSED THE CASE WITH OSMIN YATES AND HE WILL ADMIT - Results/Orders Results/Orders: 09/14/18 15:15 EKG STAT Laboratory Results D-Dimer, Quantitative 1.06 mg/L FEU (0-0.49) H* 09/14/18 15:35 pCO2 30 mmHg (32-45) L 09/14/18 15:45 pO2 46 mmHg (83-108) L* 09/14/18 15:45 HCO3 21.8 mmol/L 09/14/18 15:45 ABG pH 7.470 (7.35-7.45) H 09/14/18 15:45 ABG O2 Saturation 86.4 % (95.0-99.0) L 09/14/18 15:45 ABG Base Excess -0.3 mmol/L 09/14/18 15:45 ABG Deoxyhemoglobin 13.4 % (0.0-5.0) H 09/14/18 15:45 Oxyhemoglobin % 85.0 % (94.0-98.0) L 09/14/18 15:45 Carboxyhemoglobin % 0.4 % (0.5-1.5) L 09/14/18 15:45 Methemoglobin % Sat 1.2 % (0.0-1.5) 09/14/18 15:45 Calc Total Hemoglobin 15.5 g/dL (12.0-16.0) 09/14/18 15:45 Lactic Acid 1.9 mmol/L (0.5-2.2) 09/14/18 15:35 Troponin I < 0.02 ng/mL (0.01-0.05) 09/14/18 15:35 B-Natriuretic Peptide 26.4 pg/ml (0-100) 09/14/18 15:35 Urine Color Yellow (Yellow) 09/14/18 16:16 Urine Appearance Clear (Clear) 09/14/18 16:16 Urine pH 7.0 (4.5-7.8) 09/14/18 16:16 Ur Specific [place] 1.015 (1.005-1.030) 09/14/18 16:16 Urine Protein Negative mg/dL 09/14/18 16:16 Urine Glucose (UA) 500 mg/dL (Negative) H 09/14/18 16:16 Urine Ketones Negative mg/dL (NEGATIVE) 09/14/18 16:16 Urine Blood Trace-intact (Negative) H 09/14/18 16:16 Urine Nitrite Negative 09/14/18 16:16 Urine Bilirubin Negative (NEGATIVE) 09/14/18 16:16 Urine Urobilinogen 0.2 mg/dL (0.2-1.0) 09/14/18 16:16 Ur Leukocyte Esterase Negative (Negative) 09/14/18 16:16 Urine RBC 0-1 /hpf 09/14/18 16:16 Urine WBC 0 /hpf 09/14/18 16:16 Ur Epithelial Cells 0-1 /hpf 09/14/18 16:16 Urine Bacteria 0 09/14/18 16:16 Departure - Departure Clinical Impression: Hypoxemia Reactive airway disease with acute exacerbation Qualifiers: Asthma severity: moderate Time of Disposition: 18:28 Disposition: Discharge to Home or Self Care Condition: Fair Departure Forms: ED Discharge - Pt. Copy, Patient Portal Self Enrollment Referrals: QUIN WOMACK MD [Primary Care Provider] - 1-2 Weeks Home Medications: Ambulatory Orders Aspirin [Jennie Low Dose] 81 mg PO BEDTIME 09/07/18 Atorvastatin Calcium 40 mg PO BEDTIME 09/07/18 Carvedilol 25 mg PO BID 09/07/18 Ertugliflozin l-Pyroglutamic A [Steglatro] 15 mg PO DAILY 09/07/18 Levothyroxine Sodium [Synthroid] 75 mcg PO DAILY 09/07/18 Lisinopril & Hydrochlorothiazi [Lisinopril/Hctz 20-25 mg] 1 tab PO DAILY 09/07/18 Meloxicam [Mobic] 15 mg PO DAILY PRN 09/07/18 Pantoprazole Sodium 40 mg PO DAILY 09/07/18 Bifidobacterium Infantis [Align] 4 mg PO BID #28 capsule 09/11/18 Cefdinir 300 mg PO BID #14 capsule 09/11/18 Prednisone See Taper PO DAILY #30 tab 09/11/18 Promethazine W/Codeine [Promethazine/Codeine 6.25-10 mg/5Ml] 1 tsp PO Q6H PRN #6 oz 09/11/18 guaiFENesin ER TAB [Mucinex Tab] 1,200 mg PO BID #60 tab 09/11/18 Decision To Admit - Decistion To Admit Decision to Admit Date: 09/14/18 Decision to Admit Time: 18:27
--- NOTE | 2018-09-14 17:35 | CT ---
EXAM DESCRIPTION: CTA Chest CLINICAL HISTORY: 58 years, Female, HYPOXEMIA, ELEVATED D-DIMER COMPARISON: September 07, 2018 TECHNIQUE: Rapid bolus administration of nonionicIV contrast was performed with thin-section axial scanning of the chest performed in a dynamic fashion. Reconstructed multiplanar and three dimensional MIP and/or VRT images were created on a separate dedicated workstation were reviewed along with the source axial images and stored in the patient's medical record. Stenoses were evaluated using the NASCET criteria. This exam was performed according to our departmental dose-optimization program, which includes automated exposure control, adjustment of the mA and/or kV according to patient size and/or use of iterative reconstruction technique. FINDINGS: Bolus enhanced examination of the chest demonstrates intense satisfactory enhancement of the pulmonary vasculature and aortic arch. Aortic arch calcification is present without evidence of dissection or aneurysm. Pulmonary outflow tract and main pulmonary arteries as well as the lobar and segmental branches and proximal subsegmental branches are well opacified without evidence of obstruction or filling defect. No evidence of embolus is noted. The thoracic inlet and superior mediastinum as well as middle mediastinum and hilar structures show no significant adenopathy. The upper abdomen is unremarkable. Lung window images demonstrate no dense consolidation or pleural effusion. Tiny amount of peripheral atelectasis or subsegmental infiltrate in the left lingula anterolaterally is present near the lung base. Minimal changes in the posterior medial right lung base is also apparent. IMPRESSION: 1. Negative CT pulmonary angiogram for pulmonary embolus or filling defect or obstruction. The aortic arch and great vessels are normal as well. 2. Patchy subsegmental infiltrate anterolaterally in the left lingula posteriorly medially in the medial right lung base. Minimal atelectasis or patchy bronchopneumonia should be considered. Electronically signed by: Andres Greenwood MD 09/14/2018 5:31 PM EMERGENCY DEPARTMENT
--- NOTE | 2018-09-14 19:20 | HP ---
SUPERVISING PHYSICIAN: Wale Rodney MD CHIEF COMPLAINT: Increasing shortness of breath. HISTORY OF PRESENT ILLNESS: Ms. Ocasio is a 58 year-old template who was just released from the hospital this past Friday after she was found to be positive for influenza A and viral pneumonitis. She was given breathing treatments and showed improvement while in the hospital and was discharged to home and scheduled to have a sleep study today. She was seen in followup in Dr. Torres's office today but she was found to be fatigued, short of breath and unable to make any full sentences before she became completely exhausted. A chest x-ray was repeated and a CBC and CMP. White count was 14,000 with 79% neutrophils. At that point, she was sent to the Emergency Room for further evaluation. It was also noted on her last admission that she had an elevated D- dimer and a CT radiogram was performed and RPE was noted. On admission today, in the Emergency Room a blood gas analysis showed she was severely hypoxic with a P02 of 46, PC02 of 30 and saturation of 86% on room air with a pH of 7.47, bicarb 21. Lactic acid was 1.9, troponin less than 0.02 and BNP normal at 26.4. D-dimer was again elevated at 1.06. She then had a chest thoracic CTA and radiology findings it was negative for pulmonary embolism but there was note of patchy segmental infiltrate anteriorly in the left lingula posteriorly medially in the right media lung base concerning for patchy bronchial pneumonia. The patient is now going to be admitted for treatment of developing a probable secondary bacterial pneumonia post influenza pneumonitis. PAST MEDICAL HISTORY: 1. Hypertension. 2. Coronary artery disease. 3. Hyperlipidemia. 4. Type 2 diabetes mellitus. 6. Hypothyroidism on supplementation. 7. Gastroesophageal reflux disease. 8. Recent hospitalization for influenza A, pneumonitis. PAST SURGICAL HISTORY: 1. Tonsillectomy. 2. Tubal ligation. HOME MEDICATIONS: 1. Aspirin 81 mg at bedtime. 2. Atorvastatin 40 mg at bedtime. 3. Pantoprazole 40 mg daily. 4. Mobic 15 mg as needed. 5. Steglatro 15 mg daily. 6. Synthroid 75 mg daily. 7. Lisinopril/hydrochlorothiazide 20-25 mg 1 tablet daily. 8. Carvedilol 25 mg b.i.d. FAMILY HISTORY: Positive for heart disease. Mother at age 69 with nonalcoholic liver cirrhosis. Father at age 74 from a myocardial infarction. She has one brother at age 49 with aneurysm around the heart. She has one sister who is also and was positive for type 2 diabetes mellitus. SOCIAL HISTORY: The patient is , retired. She lives in [place]. She has 3 children. She is a former smoker. She smoked for 25 years, but quit in 2007. She drinks alcohol on an infrequent basis. She does not use illicit drugs. REVIEW OF SYSTEMS: CONSTITUTIONAL: Positive for fevers, chills, general malaise. HEENT: Negative for nasal congestion, sore throats, earaches, visual disturbances. RESPIRATORY: Positive for increasing shortness of breath, wheezing, productive cough. CARDIOVASCULAR: Negative for chest pain, palpitations or syncopal episodes. GASTROINTESTINAL: Negative for nausea, vomiting, diarrhea, constipation or abdominal pain. GENITOURINARY: 0Negative for dysuria, hematuria, polyuria. NEUROLOGIC: Negative for seizures, syncopal episodes, ataxia or other focal deficits. PHYSICAL EXAMINATION: VITAL SIGNS: On admission, temperature 96.2, pulse 66, blood pressure 142/94, respirations are 18, saturation 99% on 2 liters nasal cannula at rest. Admission weight 81.4 kg. GENERAL: The patient is alert. She appears well hydrated and well-nourished and in no obvious acute distress. She has had multiple breathing treatments in the Emergency Room prior to admission. HEENT: Tympanic membranes clear bilaterally. Oropharynx is pink, moist without any lesions. . NECK: Supple, nontender with full range of motion. No jugular venous distention noted. RESPIRATORY: Lung sounds are decrease throughout with diffuse expiratory and inspiratory wheezing with extended in expiratory phase. CARDIOVASCULAR: Regular rate and rhythm without any appreciable murmurs, gallops, or rubs. ABDOMEN: Soft, nontender. Positive bowel sounds. EXTREMITIES: There is no cyanosis, clubbing or edema. No calf tenderness, no pedal edema. NEUROLOGIC: The patient is alert and oriented times three. LABORATORY: CBC pending. Showed 14,000 white count reported from the lab done in the clinic today. CMP pending. Lactic acid normal at 1.9. D-dimer 1.06, troponin less than 0.02. BNP normal at 26. Urinalysis showed 500 glucose, trace of intact blood. Blood gas analysis showed a pH of 7.47 with PC02 of 30, P02 of 46, bicarb 21, 02 saturation 86% on room air. RADIOLOGY: CT of the chest and thoracic per radiology interpretation, negative for any findings suggestive of a pulmonary embolus. There was note of patchy subsegmental infiltrate anterolaterally in the left lingula posteriorly medially in the medial right lung base with concerns for patchy bronchial pneumonia. ASSESSMENT: 1. Community acquired pneumonia, probable pneumococcal from secondary bacterial infection post viral pneumonitis with positive influenza A within the last week, treated with Tamiflu. 2. Increasing dyspnea with a partially compensated respiratory acidosis and severe hypoxemia secondary to bronchial pneumonia as noted in #1. 3. History of hypertension. 4. Coronary artery disease. 5. Type 2 diabetes mellitus. 6. Elevated D dimer without any findings of pulmonary embolism on current CTA of the chest, probably due to underlying developing bronchial pneumonia. PLAN: The patient is going to be admitted for initiation of treatment of likely a pneumococcal pneumonia post secondary infection to recent influenza pneumonitis, having failed to respond to outpatient management post discharge within the last week. She will be on aggressive pulmonary hygiene, corticosteroids. Will start her on DVT prophylaxis per protocol. She will be on sliding scale per protocol. Will start her on antibiotics with Rocephin and azithromycin. Await a sputum culture if possible for her current antibiotic therapy. She just finished a course of Tamiflu and is afebrile at time of admission, therefore, will hold off with further treatment with antivirals and forgo any testing for additional secondary influenza infection. She will be a slow taper off steroids until oral medicines and again will require aggressive breathing treatments with Duoneb treatments and p.r.n. albuterol as needed. Will repeat lab in the morning and treat as necessary, as well as repeat a chest x-ray. Will anticipate length of stay to be at least 2 to 3 days and until she can transition back to outpatient management, continue to monitor and treat as needed. #[id number] [facility]
[2018-09-14] MEDS ORDERED: ONDANSETRON INJ 4 MG/2 ML VIAL IV PRN (20:03)
[2018-09-14] MEDS ORDERED: ACETAMINOPHEN 325 MG TAB PO PRN (20:03)
[2018-09-14] MEDS ORDERED: ALBUTEROL SULFATE 2.5 MG/3 ML VIAL NEB PRN (20:03)
[2018-09-14] MEDS ORDERED: cefTRIAXone SODIUM 1 GM VIAL ONE (20:19)
[2018-09-14] MEDS ORDERED: SODIUM CHL 0.9% 50ML MIN-BAG+ 50 ML IVPB ONE (20:19)
[2018-09-14] MEDS: IV SET AND CAP CHANGE INJ INJ SCH (20:25)
[2018-09-14] MEDS: cefTRIAXone SODIUM 1 GM in SODIUM CHL 0.9% 50ML MIN-BAG+ 50 ML IVPB SCH (20:26)
[2018-09-14] MEDS ORDERED: SODIUM CHLORIDE 0.9% 250ML 250 ML ONE (20:30)
[2018-09-14] MEDS ORDERED: AZITHROMYCIN IV 500 MG VIAL IVPB ONE (20:30)
[2018-09-14] MEDS: AZITHROMYCIN IV 500 MG in SODIUM CHLORIDE 0.9% 250ML 250 ML IVPB SCH (21:02)
[2018-09-14] MEDS ORDERED: NON-FORMULARY MEDICATION 1 EA MIS (Atorvastatin Calcium [Atorvastatin Calcium] 40 MG) PO SCH (23:25)
[2018-09-14] MEDS ORDERED: GLUCAGON INJ 1 MG VIAL SUBCU PRN (23:41)
[2018-09-14] MEDS ORDERED: DEXTROSE 50% 25 GM/50 ML SYG IV PRN (23:41)
[2018-09-14] MEDS: CHLORPHENIRAMINE W/HYDROCODONE 5 ML UD PO PRN (23:42)
[2018-09-14] MEDS: BUDESONIDE NEBS 0.5 MG/2 ML VIAL NEB SCH (23:59)
[2018-09-15] MEDS ORDERED: ATORVASTATIN 20 MG TAB PO ONE (00:06)
[2018-09-15] MEDS ORDERED: CARVEDILOL 12.5 MG TAB ONE ×2 (00:06→08:46)
[2018-09-15] MEDS: KCL 20MEQ/0.45% NS 1,000 ML IVS PRN ×2 (00:13→11:55)
[2018-09-15] MEDS: NON-FORMULARY MEDICATION 1 EA MIS (Carvedilol [Carvedilol] 25 MG) PO SCH ×2 (00:17→08:54)
[2018-09-15] MEDS: BIFIDOBACTERIUM INFANTIS 4 MG CAP PO SCH ×3 (00:17→21:04)
[2018-09-15] MEDS: guaiFENesin ER TAB 600 MG TAB PO SCH ×3 (00:18→21:05)
[2018-09-15] MEDS: PANTOPRAZOLE SODIUM IV 40 MG VIAL IV SCH (06:45)
[2018-09-15] MEDS: LEVOTHYROXINE SODIUM 0.075 MG TAB PO SCH ×2 (06:48→09:26)
--- NOTE | 2018-09-15 07:19 | RAD ---
EXAM DESCRIPTION: Chest,2 Views CLINICAL HISTORY: Pneumonia COMPARISON: September 11, 2018. CT angiogram of the thorax September 14, 2017. FINDINGS: Two views of the thorax. No consolidation, effusion or pneumothorax is present. Resolved basilar atelectasis. Heart and mediastinum within normal limits. Osseous structures are normal. IMPRESSION: Normal chest Electronically signed by: Nick Link MD 09/15/2018 7:16 AM [facility]ING [facility] DEVELOPMENT REP
[2018-09-15] MEDS: INSULIN LISPRO 100 UNITS/ML PEN SUBCU SCH ×4 (07:35→21:12)
[2018-09-15] MEDS: BUDESONIDE NEBS 0.5 MG/2 ML VIAL NEB SCH ×2 (08:24→19:30)
[2018-09-15] MEDS: IPRATROPIUM/ALBUTEROL 3 ML VIAL INH SCH ×4 (08:24→19:30)
[2018-09-15] MEDS ORDERED: LISINOPRIL 10 MG TAB ONE (08:46)
[2018-09-15] MEDS ORDERED: hydroCHLOROthiazide 25 MG TAB ONE (08:46)
[2018-09-15] MEDS: ENOXAPARIN SODIUM 40 MG/0.4 ML SYG SUBCU SCH (08:55)
[2018-09-15] MEDS: SODIUM CHLORIDE 0.9% (FLUSH) 10 ML SYG IV PRN ×3 (08:56→20:30)
[2018-09-15] MEDS: methylPREDNISolone SODIUM SUC 125 MG/2 ML VIAL IV SCH ×4 (08:56→23:59)
[2018-09-15] MEDS ORDERED: PYROGLUTAMIC A PO SCH (09:00)
[2018-09-15] MEDS ORDERED: LEVOTHYROXINE SODIUM 0.075 MG TAB PO SCH (09:00)
[2018-09-15] MEDS ORDERED: NON-FORMULARY MEDICATION 1 EA MIS (Lisinopril & Hydrochlorothiazi [Lisinopril/Hctz 20-25 M PO SCH (09:00)
[2018-09-15] MEDS ORDERED: ERTUGLIFLOZIN PO SCH (09:00)
[2018-09-15] MEDS: IBUPROFEN 400 MG TAB PO PRN (10:21)
[2018-09-15] MEDS: CHLORPHENIRAMINE W/HYDROCODONE 5 ML UD PO PRN (11:57)
[2018-09-15] MEDS: ERTUGLIFLOZIN PO SCH (14:19)
[2018-09-15] MEDS: PYROGLUTAMIC A PO SCH (14:19)
[2018-09-15] MEDS ORDERED: cefTRIAXone SODIUM 1 GM VIAL ONE (19:10)
[2018-09-15] MEDS ORDERED: SODIUM CHLORIDE 0.9% 250ML 250 ML ONE (19:10)
[2018-09-15] MEDS ORDERED: SODIUM CHL 0.9% 50ML MIN-BAG+ 50 ML IVPB ONE (19:10)
[2018-09-15] MEDS ORDERED: AZITHROMYCIN IV 500 MG VIAL IVPB ONE (19:10)
--- NOTE | 2018-09-15 20:14 | PN ---
DATE: 09/15/18 SUPERVISING PHYSICIAN: Wale Rodney M.D. SUBJECTIVE: The patient still continues to be short of breath. She has actually been able to ambulate but does fairly okay with her oxygen. She still describes that she feels air hungered and continues with a cough but remains afebrile. OBJECTIVE: VITAL SIGNS: Temperature 98.8, pulse 63, blood pressure 125/75, respirations 16, satting 96% on 2 liters nasal cannula. CHEST: Lung sounds remain diminished throughout with just very faint inspiratory and expiratory wheezing. HEART: Regular rate and rhythm. ABDOMEN: Soft, non-tender. Positive bowel sounds. EXTREMITIES: No edema. NEUROLOGIC: She is alert and oriented times three. LABORATORY: White count 12,500, hemoglobin 14.6, hematocrit 43.6, platelet count 354,000. Differential shows a left shift today. Chemistries show sodium 135, potassium 3.0, BUN 26, creatinine 0.49. Blood sugar is between 125 and 157. Calcium 8.4. MICROBIOLOGY: Sputum culture is pending. RADIOLOGY: Repeat chest x-ray today 2 view chest per radiology interpretation shows normal chest. ASSESSMENT: 1. Concerns for developing community acquired pneumonia, probable pneumococcal from secondary bacterial infection post viral pneumonitis with positive Influenza A in the past week having failed to respond to treatment plan after going home. 2. Worsening dyspnea with a partially compensated respiratory acidosis on admission and severe hypoxemia secondary to bronchial pneumonia as noted in #1. 3. History of hypertension. 4. Coronary artery disease. 5. Type 2 diabetes mellitus. 6. Elevated D dimer without any findings of pulmonary embolism on current CTA of the chest, probably due to underlying developing bronchial pneumonia. PLAN: Will continue with aggressive pulmonary hygiene today. She continues on fairly high dose of Solu-Medrol for a total of 4 doses, continuing to taper tomorrow to a lower dose with possibly onto oral, however the patient has been fairly refractive to treatment in the past so it may be a slow go on tapering of her actual steroids. She will continue on antibiotics with azithromycin and Rocephin. I have encouraged her to ambulate with oxygen. Will continue to assess the patient's need for oxygen prior to going home. Certainly on discharge she will need tapering of steroids. Will continue antibiotics and likely home O2 which will work to qualify prior to discharge as well as she will need nebulizer machine and albuterol nebs prior to discharge as this was her biggest problem at discharge as she was unable to obtain the medication or apparently was not given medications as she describes at discharge. Will continue to monitor the patient closely and until she can transition to outpatient management, treat as needed. #[id number] [facility]
[2018-09-15] MEDS: cefTRIAXone SODIUM 1 GM in SODIUM CHL 0.9% 50ML MIN-BAG+ 50 ML IVPB SCH (20:26)
[2018-09-15] MEDS: AZITHROMYCIN IV 500 MG in SODIUM CHLORIDE 0.9% 250ML 250 ML IVPB SCH (20:29)
[2018-09-15] MEDS ORDERED: LEVOTHYROXINE SODIUM 0.075 MG TAB ONE (20:41)
[2018-09-15] MEDS ORDERED: methylPREDNISolone SODIUM SUC 125 MG/2 ML VIAL IV SCH (21:00)
[2018-09-15] MEDS: ASPIRIN (ENTERIC COATED) 81 MG TAB PO SCH (21:04)
[2018-09-15] MEDS: CARVEDILOL 12.5 MG TAB PO SCH (21:05)
[2018-09-15] MEDS: ATORVASTATIN 20 MG TAB PO SCH (21:05)
[2018-09-16] MEDS: CHLORPHENIRAMINE W/HYDROCODONE 5 ML UD PO PRN ×3 (00:01→19:04)
[2018-09-16] MEDS: KCL 20MEQ/0.45% NS 1,000 ML IVS PRN ×2 (02:03→15:32)
[2018-09-16] MEDS: PANTOPRAZOLE SODIUM IV 40 MG VIAL IV SCH (06:08)
[2018-09-16] MEDS: LEVOTHYROXINE SODIUM 0.075 MG TAB PO SCH (06:08)
[2018-09-16] MEDS: INSULIN LISPRO 100 UNITS/ML PEN SUBCU SCH ×4 (07:52→21:28)
[2018-09-16] MEDS: LISINOPRIL 10 MG TAB PO SCH (08:01)
[2018-09-16] MEDS: guaiFENesin ER TAB 600 MG TAB PO SCH ×2 (08:01→20:39)
[2018-09-16] MEDS: ENOXAPARIN SODIUM 40 MG/0.4 ML SYG SUBCU SCH (08:02)
[2018-09-16] MEDS: BIFIDOBACTERIUM INFANTIS 4 MG CAP PO SCH ×2 (08:02→20:38)
[2018-09-16] MEDS: hydroCHLOROthiazide 25 MG TAB PO SCH (08:02)
[2018-09-16] MEDS: CARVEDILOL 12.5 MG TAB PO SCH ×2 (08:02→20:38)
[2018-09-16] MEDS ORDERED: POTASSIUM CHLORIDE 20 MEQ TAB PO ONE (08:28)
[2018-09-16] MEDS: BUDESONIDE NEBS 0.5 MG/2 ML VIAL NEB SCH ×2 (08:35→20:16)
[2018-09-16] MEDS: IPRATROPIUM/ALBUTEROL 3 ML VIAL INH SCH ×4 (08:35→20:16)
[2018-09-16] MEDS: PYROGLUTAMIC A PO SCH (11:54)
[2018-09-16] MEDS: ERTUGLIFLOZIN PO SCH (11:54)
--- NOTE | 2018-09-16 12:01 | PN ---
SUPERVISING PHYSICIAN: Wale Rodney MD DATE: 09/16/18 SUBJECTIVE: The patient is sitting up in her bed. She has complaints of some shortness of breath with exertion. She was quite concerned that she went home without oxygen last week as she felt like her oxygen was low all weekend. She denies any nausea, vomiting, diarrhea or constipation. No chest pains or palpitations. I have assured that we are going to do another oxygen qualify ambulation study today. If she qualifies for that, hopefully we can get her discharged tomorrow if she improves clinically. OBJECTIVE: VITAL SIGNS: Temperature 97.0. Heart rate 71. Blood pressure 158/98. Respiratory rate 18. O2 saturation 94% on 2 liters nasal cannula. RESPIRATORY: Diminished breath sounds throughout with a few scattered rhonchi. CARDIAC: Regular rate and rhythm. GASTROINTESTINAL: Abdomen is soft, nondistended, nontender. Bowel sounds are positive. NEUROLOGIC: Awake, alert and oriented times three. LABORATORY: White count is improved to 11,300 with hemoglobin 13.6, hematocrit 41.2. She does have a left shift on differential. Blood sugars have run between 131 and 194. Potassium low at 2.9 with magnesium 2.2. Calcium low at 8.3. Sputum culture is pending. All other labs and films have been reviewed via the EMR. ASSESSMENT: 1. Concerns for developing community acquired pneumonia, probable pneumococcal from secondary bacterial infection post viral pneumonitis with positive Influenza A in the past week having failed to respond to treatment plan after going home. 2. Worsening dyspnea with a partially compensated respiratory acidosis on admission and severe hypoxemia secondary to bronchial pneumonia as noted in #1. 3. Persistent asthma with exacerbation, resolving. 4. Coronary artery disease. 5. Type 2 diabetes mellitus. 6. Elevated D dimer without any findings of pulmonary embolism on current CTA of the chest, probably due to underlying developing bronchial pneumonia. 7. History of hypertension. PLAN: We will continue present supportive care. I have given her some potassium supplementation today. I have also ordered home O2 qualification study today. I have ordered routine labs for in the morning. I have decreased her Solu-Medrol and hopefully she can go to p.o. prednisone tomorrow. We will continue with her azithromycin and Rocephin. She has been ambulating in the hallways with her oxygen. She will also need a nebulizer machine as well as albuterol nebulizers on discharge . Hopefully she can be discharged tomorrow. We will continue to monitor the patient closely and follow as needed. #[id number] [facility]
[2018-09-16] MEDS: methylPREDNISolone SODIUM SUC 40 MG/ML VIAL IV SCH ×2 (14:06→21:33)
[2018-09-16] MEDS: IBUPROFEN 400 MG TAB PO PRN (14:16)
[2018-09-16] MEDS ORDERED: SODIUM CHLORIDE 0.9% 250ML 250 ML ONE (20:09)
[2018-09-16] MEDS ORDERED: SODIUM CHL 0.9% 50ML MIN-BAG+ 50 ML IVPB ONE (20:09)
[2018-09-16] MEDS ORDERED: cefTRIAXone SODIUM 1 GM VIAL ONE (20:10)
[2018-09-16] MEDS ORDERED: AZITHROMYCIN IV 500 MG VIAL IVPB ONE (20:11)
[2018-09-16] MEDS: cefTRIAXone SODIUM 1 GM in SODIUM CHL 0.9% 50ML MIN-BAG+ 50 ML IVPB SCH (20:33)
[2018-09-16] MEDS: AZITHROMYCIN IV 500 MG in SODIUM CHLORIDE 0.9% 250ML 250 ML IVPB SCH (20:35)
[2018-09-16] MEDS: ASPIRIN (ENTERIC COATED) 81 MG TAB PO SCH (20:38)
[2018-09-16] MEDS: ATORVASTATIN 20 MG TAB PO SCH (20:39)
[2018-09-17] MEDS: KCL 20MEQ/0.45% NS 1,000 ML IVS PRN (02:35)
[2018-09-17] MEDS: methylPREDNISolone SODIUM SUC 40 MG/ML VIAL IV SCH (06:00)
[2018-09-17] MEDS: PANTOPRAZOLE SODIUM IV 40 MG VIAL IV SCH (06:02)
[2018-09-17] MEDS: LEVOTHYROXINE SODIUM 0.075 MG TAB PO SCH (06:02)
[2018-09-17] MEDS: INSULIN LISPRO 100 UNITS/ML PEN SUBCU SCH ×4 (07:39→22:07)
[2018-09-17] MEDS: BUDESONIDE NEBS 0.5 MG/2 ML VIAL NEB SCH ×2 (08:12→20:54)
[2018-09-17] MEDS: IPRATROPIUM/ALBUTEROL 3 ML VIAL INH SCH ×4 (08:12→20:54)
[2018-09-17] MEDS: LISINOPRIL 10 MG TAB PO SCH (09:38)
[2018-09-17] MEDS: guaiFENesin ER TAB 600 MG TAB PO SCH ×2 (09:39→20:36)
[2018-09-17] MEDS: BIFIDOBACTERIUM INFANTIS 4 MG CAP PO SCH ×2 (09:39→20:36)
[2018-09-17] MEDS: CARVEDILOL 12.5 MG TAB PO SCH ×2 (09:39→20:36)
[2018-09-17] MEDS: hydroCHLOROthiazide 25 MG TAB PO SCH (09:39)
[2018-09-17] MEDS: PYROGLUTAMIC A PO SCH (09:40)
[2018-09-17] MEDS: ENOXAPARIN SODIUM 40 MG/0.4 ML SYG SUBCU SCH (09:40)
[2018-09-17] MEDS: ERTUGLIFLOZIN PO SCH (09:40)
--- NOTE | 2018-09-17 16:40 | PN ---
DATE: 09/17/18 SUPERVISING PHYSICIAN: Wale Rodney M.D. SUBJECTIVE: The patient is lying in her bed. She is feeling much better. She is also very relieved that she is going to get to go home on oxygen. I have told her we are still awaiting her sputum culture and that her lab work has improved. She has no complaints of chest pain, nausea, vomiting, diarrhea or constipation. She does get short of breath with exertion but it is much improved. OBJECTIVE: VITAL SIGNS: temperature 97.9, heart rate 67, blood pressure 150/88, respiratory rate 18, O2 sat is 90% on 2 liters nasal cannula. RESPIRATORY: Diminished breath sounds throughout, but otherwise clear to auscultation. CARDIAC: Regular rate and rhythm. GASTROINTESTINAL: Abdomen is soft, nondistended, non-tender. Bowel sounds are positive. NEUROLOGIC: She is awake, alert and oriented times three. LABORATORY: WBCs are now 10.3 with a stable hemoglobin of 14.9 and hematocrit 44.8. She has a left shift on her differential. Blood sugars have run between 131 and 187. Electrolytes are basically within normal limits. Sputum culture is still pending. All other labs and films have been reviewed via the EMR. ASSESSMENT: 1. Concerns for developing community acquired pneumonia, probable pneumococcal from secondary bacterial infection post viral pneumonitis with positive Influenza A in the past week having failed to respond to treatment plan after going home. 2. Worsening dyspnea with a partially compensated respiratory acidosis on admission and severe hypoxemia secondary to bronchial pneumonia as noted in #1. 3. Persistent asthma with exacerbation, that has resolved.. 4. Coronary artery disease. 5. Type 2 diabetes mellitus. 6. Elevated D dimer without any findings of pulmonary embolism on current CTA of the chest, probably due to underlying developing bronchial pneumonia. 7. History of hypertension. PLAN: We will continue present supportive care. I will hold on any further lab test for now. Will await her sputum culture. I have ordered her oxygen from the medical supply. She can go home with that. We will need to schedule for another sleep study as she missed her last one due to her hospitalization. Plan for discharge tomorrow if she continues clinical improvement. We will continue to monitor closely and follow as needed. #[id number] [facility]
[2018-09-17] MEDS ORDERED: SODIUM CHLORIDE 0.9% 250ML 250 ML ONE (19:35)
[2018-09-17] MEDS ORDERED: cefTRIAXone SODIUM 1 GM VIAL ONE (19:36)
[2018-09-17] MEDS ORDERED: SODIUM CHL 0.9% 50ML MIN-BAG+ 50 ML IVPB ONE (19:36)
[2018-09-17] MEDS ORDERED: AZITHROMYCIN IV 500 MG VIAL IVPB ONE (19:37)
[2018-09-17] MEDS: IBUPROFEN 400 MG TAB PO PRN (19:57)
[2018-09-17] MEDS: cefTRIAXone SODIUM 1 GM in SODIUM CHL 0.9% 50ML MIN-BAG+ 50 ML IVPB SCH (19:57)
[2018-09-17] MEDS: CHLORPHENIRAMINE W/HYDROCODONE 5 ML UD PO PRN (19:57)
[2018-09-17] MEDS: IV SET AND CAP CHANGE INJ INJ SCH (20:33)
[2018-09-17] MEDS: ATORVASTATIN 20 MG TAB PO SCH (20:36)
[2018-09-17] MEDS: AZITHROMYCIN IV 500 MG in SODIUM CHLORIDE 0.9% 250ML 250 ML IVPB SCH (20:37)
[2018-09-17] MEDS: ASPIRIN (ENTERIC COATED) 81 MG TAB PO SCH (20:37)
[2018-09-18] MEDS: KCL 20MEQ/0.45% NS 1,000 ML IVS PRN (04:16)
[2018-09-18] MEDS: PANTOPRAZOLE SODIUM IV 40 MG VIAL IV SCH (06:05)
[2018-09-18] MEDS: LEVOTHYROXINE SODIUM 0.075 MG TAB PO SCH (06:05)
[2018-09-18] MEDS: INSULIN LISPRO 100 UNITS/ML PEN SUBCU SCH ×2 (07:38→11:44)
[2018-09-18] MEDS: IPRATROPIUM/ALBUTEROL 3 ML VIAL INH SCH ×2 (08:39→13:07)
[2018-09-18] MEDS: BUDESONIDE NEBS 0.5 MG/2 ML VIAL NEB SCH (08:39)
[2018-09-18] MEDS: ERTUGLIFLOZIN PO SCH (08:53)
[2018-09-18] MEDS: PYROGLUTAMIC A PO SCH (08:53)
[2018-09-18] MEDS: BIFIDOBACTERIUM INFANTIS 4 MG CAP PO SCH (08:54)
[2018-09-18] MEDS: hydroCHLOROthiazide 25 MG TAB PO SCH (08:54)
[2018-09-18] MEDS: guaiFENesin ER TAB 600 MG TAB PO SCH (08:55)
[2018-09-18] MEDS: LISINOPRIL 10 MG TAB PO SCH (08:55)
[2018-09-18] MEDS: CARVEDILOL 12.5 MG TAB PO SCH (08:55)
[2018-09-18] MEDS: ENOXAPARIN SODIUM 40 MG/0.4 ML SYG SUBCU SCH (08:56)
[2018-09-18] MEDS: IBUPROFEN 400 MG TAB PO PRN (12:37)
[2018-09-18 14:00] VITALS: BP 125/76; TEMP 97.6; O2SAT 95
--- NOTE | 2018-09-18 18:25 | DS ---
SUPERVISING PHYSICIAN: Wale Rodney M.D. DISCHARGE DIAGNOSIS: 1. Concerns for developing community acquired pneumonia, probable pneumococcal from secondary bacterial infection post viral pneumonitis with positive Influenza A in the past week having failed to respond to treatment plan after going home. 2. Worsening dyspnea with a partially compensated respiratory acidosis on admission and severe hypoxemia secondary to bronchial pneumonia as noted in #1. 3. Persistent asthma with exacerbation, that has resolved.. 4. Coronary artery disease. 5. Type 2 diabetes mellitus. 6. Elevated D dimer without any findings of pulmonary embolism on current CTA of the chest, probably due to underlying developing bronchial pneumonia. 7. History of hypertension. HISTORY OF PRESENT ILLNESS: This is a 58 year-old female who was released from the hospital Friday prior to her readmission. She had been positive for influenza A and viral pneumonitis. She was given breathing treatments and showed improvement while in the hospital and was discharged to home and scheduled to have a sleep study on the day she was admitted. She was seen in followup at Dr. Torres's office and was found to be fatigued, short of breath and unable to make full sentences before she became completely exhausted. A chest x-ray was repeated and a CBC and CMP. White count was 14,000 with 79% neutrophils. She was then sent to the Emergency Room for further evaluation. It was also noted on her last admission that she had an elevated D-dimer and a CT radiogram was performed and RPE was noted. On admission, her blood gas analysis showed she was severely hypoxic with a p02 of 46, pC02 of 30 and O2 saturation of 86% on room air with a pH of 7.47, bicarb 21. Lactic acid was 1.9, troponin less than 0.02 and BNP normal at 26.4. D- dimer was again elevated at 1.06. She had a chest thoracic CTA and findings were negative for pulmonary embolism but there was a note of patchy segmental infiltrate anteriorly in the left lingula posterior medially in the right medial lung base concerning for patchy bronchial pneumonia. The patient is now going to be admitted for treatment of developing a probable secondary bacterial pneumonia post influenza pneumonitis. HOSPITAL COURSE: She was treated for pneumococcal pneumonia post secondary infection after recent Influenza pneumonitis. She was placed on aggressive pulmonary hygiene with corticosteroids. She also had DVT prophylaxis. She was put on sliding scale insulin. Her antibiotics were Rocephin and azithromycin. She had finished a course of Tamiflu and was afebrile at the time of admission. The plan was to taper off the steroids and if needed have oxygen therapy at home. She continued to have shortness of breath but each day it improved. Her antibiotics were continued as well as her nebulizer treatments. An ambulation study was performed and she was found to need oxygen at home. An order for O2 was sent to [facility] in [place] for her oxygen therapy. She also received some potassium supplement during her stay. Her Solu-Medrol was discontinued and she was put on prednisone p.o. Today, she can be discharged in stable condition. LABORATORY: WBCs on admission were 12,500. After her hospital stay they are now 10,300. Hemoglobin and hematocrit have been stable at 14.9 and 44.8. Blood sugars have run between 110 and 187. Electrolytes are basically within normal limits. Preliminary sputum culture shows no growth, but it has not been resulted. RADIOLOGY: Chest CTA was as per the History of Present Illness. Final chest x- ray during her stay at the hospital shows a normal chest. DISCHARGE PLAN: The patient will be discharged home in stable condition. She is to resume her previous diet as well as her previous activity. She will have oxygen to be worn at 2 liters nasal cannula. She will need to get a sleep study test as she missed her last sleep study test due to hospitalization. Will restart her home medications as well as Albuterol sulfate nebs. She is to continue her prednisone taper at home as well as the antibiotics she was given after her last discharge. She is to see Dr. Torres within the next 1-2 weeks. She is to return to the hospital or followup with Dr. Torres for any problems or complications. DISCHARGE MEDICATIONS: 1. Pantoprazole. 2. Meloxicam. 3. Steglatro. 4. Synthroid. 5. Atorvastatin. 6. Lisinopril HCTZ. 7. Carvedilol. 8. Baby aspirin. 9. Cefdinir. 10. Guaifenesin. 11. Prednisone. 12. Promethazine with codeine. 13. Albuterol sulfate nebs. #[id number] [facility]
== END 2018-09-18 14:25 | disposition home or self-care (01) | DRG 194 ==
LOC: ER 14:52 → UNDOADMIN 19:19 → MS 19:19
PROVIDERS: ADMIT Nurse Practitioner Family; ATTEND Nurse Practitioner Family
PROC: B32T1ZZ Computerized Tomography (CT Scan) of Left Pulmonary Artery using Low Osmolar Contrast (ICD-10-PCS; principal; 2018-09-14)
PROC: B32S1ZZ Computerized Tomography (CT Scan) of Right Pulmonary Artery using Low Osmolar Contrast (ICD-10-PCS; 2018-09-14)
DX: J13 Pneumonia due to Streptococcus pneumoniae (principal); E87.2 Acidosis; J45.41 Moderate persistent asthma with (acute) exacerbation; R09.02 Hypoxemia; I25.10 Atherosclerotic heart disease of native coronary artery without angina pectoris; E11.9 Type 2 diabetes mellitus without complications; R79.89 Other specified abnormal findings of blood chemistry; I10 Essential (primary) hypertension; E78.5 Hyperlipidemia, unspecified; E89.0 Postprocedural hypothyroidism; K21.9 Gastro-esophageal reflux disease without esophagitis; I25.2 Old myocardial infarction; Z79.82 Long term (current) use of aspirin; Z79.1 Long term (current) use of non-steroidal anti-inflammatories (NSAID); Z87.891 Personal history of nicotine dependence; Z79.899 Other long term (current) drug therapy; Z88.4 Allergy status to anesthetic agent; Z79.52 Long term (current) use of systemic steroids; Z95.5 Presence of coronary angioplasty implant and graft

== ENCOUNTER → 2018-09-14 | Outpatient (CLI) | payer BC | LOC: GMAE 14:27 | PROVIDERS: ATTEND Family Medicine | DX: J12.9 Viral pneumonia, unspecified (principal) ==

== ENCOUNTER → 2018-09-28 | Outpatient (CLI) | payer BC | LOC: SL 19:04 | PROVIDERS: ATTEND Family Medicine | DX: G47.30 Sleep apnea, unspecified (principal); G47.9 Sleep disorder, unspecified; R06.83 Snoring; R09.89 Other specified symptoms and signs involving the circulatory and respiratory systems ==

== ENCOUNTER → 2018-11-19 | Outpatient (CLI) | payer BC | LOC: GMAE 10:38 | PROVIDERS: ATTEND Family Medicine | DX: E03.9 Hypothyroidism, unspecified (principal) ==

== ENCOUNTER → 2019-03-17 | Outpatient (CLI) | payer BC ==
--- NOTE | 2019-03-17 15:58 | US ---
EXAM DESCRIPTION: Renal (accession [id number]), Renal Arteries (accession [id number]): Ultrasound. CLINICAL HISTORY: ESSENTIAL PRIMARY HYPERTENSION BILATERAL COMPARISON: Two-dimensional ultrasound evaluation of the bilateral kidneys on the same visit. TECHNIQUE: Transcutaneous scanning: Grayscale mode. Doppler systolic and diastolic measurements of the abdominal aorta, renal arteries, intra renal arteries, and renal veins. Technically difficult study due to patient body habitus. Proximal right renal artery and proximal left renal artery were not seen. FINDINGS: The right kidney measures 12.1 x 6.4 x 5.1 cm; normal cortical thickness and echogenicity with no hydronephrosis or large calcifications. Smooth contour of the kidney with no perinephric fluid. Proximal ureter not visualized. The left kidney measures 11.6 x 5.9 x 5.5 cm; 2 mm echogenic stone with acoustic shadowing in the mid cortex. Otherwise normal cortical thickness and echogenicity with no hydronephrosis or large calcifications. Smooth contour of the kidney with no perinephric fluid. Proximal ureter not visualized. Distal ureters not visualized bilaterally. Urinary bladder was not visualized. Vessel diameter (cm): Aorta- Mid: 2.5 cm.l PSV (cm/sec): Aorta: 101.4 Right renal artery: 79.9 Left renal artery: 80.7 EDV (cm/sec): Right renal artery: 17.5 Left renal artery: 26.3 Renal veins: Visualized IVC: Visualized. Intrarenal segmental arterial resistive indices could not be measured due to poor visualization. Renal Aortic Ratio: Right RAR = RRA PSV/Aortic PSV = 79.9 /101.4= 0.79. Left RAR = LRA PSV/Aortic PSV = 80.7/101.4 = 0.79. End Diastolic Ratio: Right EDR = RRA EDV/RRA PSV = 17.5/79.9 = 0.22. Left EDR = LRA EDV/LRA PSV = 26.3/80.7= 0.326. Other: None.. IMPRESSION: 1. Bilateral kidneys unremarkable on grayscale appearance except for 2 mm echogenic stone in the cortex of the left kidney. No hydronephrosis. Examination limited by patient large body habitus. 2. Bilateral renal artery ratios show no evidence of significant renal artery stenosis. Proximal renal arteries are not seen bilaterally. Intrarenal resistive indices could not be measured due to poor visualization. End diastolic ratio in the right kidney indicates significant renovascular parenchymal disease. Electronically signed by: Abdirizak Ahn MD 03/17/2019 3:57 PM CDT
== END ==
LOC: US 07:51
PROVIDERS: ATTEND Family Medicine
DX: I10 Essential (primary) hypertension (principal); N20.0 Calculus of kidney

== ENCOUNTER → 2019-10-19 | Outpatient (CLI) | payer BC | LOC: GMAE 10:18 | PROVIDERS: ATTEND Family Medicine | DX: Z00.00 Encounter for general adult medical examination without abnormal findings (principal) ==

== ENCOUNTER → 2020-04-24 | Outpatient (CLI) | payer BC | LOC: GMAE 11:01 | PROVIDERS: ATTEND Family Medicine | DX: E03.9 Hypothyroidism, unspecified (principal); E11.9 Type 2 diabetes mellitus without complications; E78.2 Mixed hyperlipidemia ==